=== PATIENT | female | born 1955 | race Caucasian/White ===

== ENCOUNTER → 2016-10-10 | Outpatient (CLI) | payer OTHER ==
[~2016-10-10] MED LIST: ALBU1AER9 INH; ALBU1NEB10 INH; ASTN; ATOR-22 PO; FLNIN/ INH; FLUO20CA36 PO; FLVHFA110 INH; LSN/10125 PO; MAGN1TAB19 PO; PRAM0.129 PO; SNG10 PO
--- NOTE | 2016-10-10 17:32 | DIAGNOSTIC IMAGING REPORT ---
LUMBAR SPINE 5 VIEWS HISTORY: SI JT SACROCOCCYGEAL PAIN COMPARISON: None. FINDINGS: There is no fracture. There is 4 mm of anterolisthesis of L4 and L5. Small endplate osteophytes within the lumbar spine. Mild disc space narrowing at L3-L4 and L4-L5. Presacral soft tissues are intact. There is mild levoscoliosis which could be positional. The sacrum and bilateral sacroiliac joints are intact. No fractures identified within the sacrum. Moderate facet degenerative changes within the mid to lower lumbar spine. IMPRESSION: 1. Mild levoscoliosis within the lumbar spine which may be positional. 2. Degenerative changes within the lumbar spine as described above. 3. The sacrum and bilateral sacroiliac joints are within normal limits. Electronically signed by: Larry Vergara M.D. 10/10/2016 5:31 PM Dictated Date/Time: 10/10/2016 5:28 PM
--- NOTE | 2016-10-10 20:41 | DIAGNOSTIC IMAGING REPORT ---
LEG LENGTH STUDY (WHOLE LEG) CLINICAL HISTORY: sacroiliac joint pain.Leg length discrepancy. COMPARISON STUDY: None. FINDINGS: The right left femur measure approximate 48.5 cm and the bilateral tibia measuring approximately 37.5 cm. However, there is a slight downward tilt to the left of the pelvis. There is associated slight medial angulation of the left leg comparison to the right which has a more vertical.. IMPRESSION: There is a slight downward tilt to the left of the pelvis. However, the bilateral lower extremities are symmetric in length. Electronically signed by: Larry Vergara M.D. 10/10/2016 8:40 PM Dictated Date/Time: 10/10/2016 8:35 PM
--- NOTE | 2016-10-11 08:19 | DIAGNOSTIC IMAGING REPORT ---
SACRUM COCCYX MIN 2 VIEWS CLINICAL HISTORY: Right sacroiliac joint/sacrococcygeal pain. COMPARISON STUDY: CT of the abdomen and pelvis December 17, 2014. FINDINGS: The sacroiliac joints are intact. There is no evidence for ankylosis. No fracture or suspicious lesion is present. 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 IMPRESSION: 1. No fracture within the sacrum or coccyx by radiography. 2. Minimal arthritis of the left sacroiliac joint. Electronically signed by: Jos Reyes M.D. 10/11/2016 8:17 AM Dictated Date/Time: 10/11/2016 8:08 AM
== END | disposition home or self-care (01) ==
LOC: C.RAD 16:44
PROVIDERS: ATTEND Chiropractor
DX: M53.3 Sacrococcygeal disorders, not elsewhere classified (principal); M47.898 Other spondylosis, sacral and sacrococcygeal region

== ENCOUNTER 2018-05-06 11:25 | Emergency (ER) | payer OTHER ==
[~2018-05-06] VITALS: Ht 160 cm; Wt 69.2 kg
[~2018-05-06 11:25] MED LIST changes: +PRAM0.1212 PO; -PRAM0.129 PO
[2018-05-06 11:29] VITALS: TEMP 36.5; Ht 160 cm; Wt 69.2 kg
[2018-05-06] MEDS ORDERED: MoRPHine SULFATE 2 MG/ML CARP IV STA (12:06)
[2018-05-06] MEDS ORDERED: SODIUM CHLORIDE 0.9% 1000ML 1,000 ML IV STA ×2 (12:06→14:47)
[2018-05-06] MEDS ORDERED: ONDANSETRON INJ 2 MG/ML 2 ML VIAL IV STA ×2 (12:06→13:20)
[2018-05-06 12:13] VITALS: O2SAT 98
[2018-05-06] MEDS ORDERED: OPTIRAY 320 IV PRN (12:15)
[2018-05-06 12:20] LABS: BASO % 0.1 %; BASO ABS # 0.01 K/uL (0-0.2); EOS % 0.6 %; EOS ABS # 0.07 K/uL (0-0.5); HEMATOCRIT 44.2 % (37-47); HEMOGLOBIN 15.8 g/dL (12.0-16.0); IG# 0.02 K/uL (0.00-0.02); LYMPH % 13.7 %; LYMPH ABS # 1.62 K/uL (1.2-3.4); MEAN CELL VOLUME 87.7 fL (80-100); MEAN CORPUSCULAR HEMOGLOBIN 31.3 pg (25-34); MEAN CORPUSCULAR HGB CONC 35.7 g/dl (32-36); MEAN PLATELET VOLUME 10.2 fL (7.4-10.4); MONO % 4.3 %; MONO ABS # 0.51 K/uL (0.11-0.59); NEUT % 81.1 %; NEUT ABS # 9.59 K/uL (1.4-6.5); PLATELET COUNT 256 K/uL (130-400); RED CELL DISTRIBUTION WIDTH CV 12.5 % (11.5-14.5); RED CELL DISTRIBUTION WIDTH SD 39.9 fL (36.4-46.3); WHITE BLOOD COUNT 11.82 K/uL (4.8-10.8)
[2018-05-06 12:36] LABS: ALBUMIN 4.4 gm/dl (3.4-5.0); CALCIUM 9.1 mg/dl (8.5-10.1); CREATININE 1.38 mg/dl (0.60-1.20); TOTAL PROTEIN 8.1 gm/dl (6.4-8.2)
[2018-05-06] MEDS ORDERED: MoRPHine SULFATE 4 MG/ML 1 ML CARP\\VIAL IV STA (12:51)
[2018-05-06] MEDS ORDERED: SULF800T23 PO (12:57)
[2018-05-06] MEDS ORDERED: ALBU18002 INH (12:57)
[2018-05-06] MEDS ORDERED: ALBINS/ INH (12:57)
[2018-05-06 13:17] LABS: POTASSIUM 3.6 mmol/L (3.5-5.1)
--- NOTE | 2018-05-06 13:20 | DIAGNOSTIC IMAGING REPORT ---
L HUMERUS MIN 2 VIEWS ROUTINE CLINICAL HISTORY: Fall. Left shoulder pain. COMPARISON: None FINDINGS: Note is made of an acute comminuted mildly displaced transverse fracture of the left humeral neck that extends into the humeral head and involves the inferior aspect of the greater tuberosity. Alignment of the left acromioclavicular and glenohumeral joints appears anatomic. Moderate AC joint arthrosis is noted. IMPRESSION: Acute comminuted mildly displaced left humeral neck fracture which extends into the humeral head and involves the greater tuberosity. Electronically signed by: Jos Reyes M.D. 05/06/2018 1:18 PM Dictated Date/Time: 05/06/2018 1:17 PM
--- NOTE | 2018-05-06 14:12 | DIAGNOSTIC IMAGING REPORT ---
CT OF THE CHEST WITH IV CONTRAST CLINICAL HISTORY: Fall, L shoulder pain, right flank pain. Hypotensive. COMPARISON STUDY: Chest CT May 03, 2009. TECHNIQUE: Following IV administration of 91 mL of Optiray-320, helical axial images of the chest were obtained. Sagittal and coronal reconstructions were viewed as well as maximal intensity projections on an independent 3-D workstation. A dose lowering technique was utilized adhering to the principles of ALARA. CT DOSE: 723.74 mGy.cm FINDINGS: There is no evidence for traumatic injury to the thoracic aorta. The size if the heart is at the upper limits of normal. There is no pericardial effusion. No thoracic lymphadenopathy is present. There is no pneumothorax or pulmonary contusion. No acute rib or thoracic spine fracture is noted. Note is made of an acute comminuted displaced left humeral neck fracture that extends into the humeral head and involves the greater tuberosity. IMPRESSION: 1. Acute comminuted mildly displaced left humeral neck fracture which extends into the humeral head and involves the greater tuberosity. 2. No additional acute traumatic findings on this exam. 3. Suspected small paraesophageal hernia. 4. Fatty liver. Electronically signed by: Jos Reyes M.D. 05/06/2018 2:11 PM Dictated Date/Time: 05/06/2018 2:03 PM
--- NOTE | 2018-05-06 14:18 | EMERGENCY ROOM VISIT NOTE ---
History First contact with patient: 11:52 Chief Complaint: FALL Stated Complaint: FALL,LT SHOULER AND ARM PAIN History of Present Illness The patient is a 63 year old female who presents to the Emergency Room via private vehicle accompanied by male with complaints of "fall, left shoulder and arm pain". The patient states that earlier today around 9 AM, she was at home ambulating while carrying a glass of milk in her right hand, when she excellently tripped over a box on the floor. She notes that she did not lose consciousness, have any chest pain or shortness of breath or other injury or illness which contributed to the fall. She notes that she simply fell over the box, landing on her left shoulder/side. She heard a crunch in her left arm. She denies striking her head or loss of consciousness. She noted difficulty getting off the floor because the pain in the left arm. Since then she has pain in the low back, and took 2 Advil around 10 AM. She denies any chest pain , shortness of breath, trouble breathing, abdominal pain, leg pain. She notes a history of hypertension of which she takes lisinopril/HCTZ. Review of Systems A complete 10-point Review of Systems was discussed with the patient, with pertinent positives and negatives listed in the History of Present Illness. All remaining Review of Systems questions can be considered negative unless otherwise specified. Past Medical/Surgical History Medical Problems: (1) Hypercholesteremia (2) Hypertension Surgical Problems: (1) H/O wisdom tooth extraction (2) S/P section (3) S/P tonsillectomy Family History Heart disease Social History Smoking Status: Never Smoker Alcohol Use: occasionally Drug Use: none Marital Status: Occupation Status: employed Current/Historical Medications Scheduled Atorvastatin (Lipitor), 20 MG PO DAILY Azelastine Hcl (Astelin Nasal Mylo), 1-2 SPRAYS NA BID Fluoxetine HCl (Fluoxetine HCl), 20 MG PO HS Sulfa/Trimethoprim (Bactrim Ds 800MG/160MG), Unknown Dose PO BID Scheduled PRN Albuterol Sulf (Proventil 0.083% 2.5MG/3ML), 2.5 MG INH QID PRN for Shortness of Breath Albuterol Sulfate (Proair Respiclick), INH UD PRN for SOB/Wheezing Oxycodone Ir (Roxicodone Ir), 1 TAB PO Q4H PRN for Pain Miscellaneous Medications Hctz/Lisinopril (Lisinopril/Hctz 10/12.5 Mg), 1 TAB PO Physical Exam Vital Signs Date Time Temp Pulse Resp B/P (MAP) Pulse Ox O2 Delivery O2 Flow Rate FiO2 05/06/18 19:04 66 109/56 93 05/06/18 18:31 111/50 05/06/18 18:01 91/47 05/06/18 17:52 96/47 05/06/18 17:01 92/52 05/06/18 16:57 76 16 97 05/06/18 16:55 69 14 112/55 98 71 108/66 77 109/50 05/06/18 16:55 80 90/51 95 Room Air 05/06/18 16:43 109/50 05/06/18 16:41 108/66 05/06/18 16:40 112/55 05/06/18 16:31 99/54 05/06/18 16:28 72 05/06/18 16:22 76 23 05/06/18 16:17 105/59 05/06/18 16:07 80 35 05/06/18 16:02 75 17 05/06/18 16:01 104/60 05/06/18 15:57 82 23 05/06/18 15:32 73 24 121/49 93 Room Air 05/06/18 15:01 108/57 05/06/18 14:55 61 16 05/06/18 14:31 92/47 05/06/18 14:25 67 20 97 05/06/18 13:59 97/39 05/06/18 13:57 109/44 05/06/18 13:56 79/35 05/06/18 13:55 75 16 109/44 95 Room Air 97/39 NIBP 05/06/18 13:01 90/44 05/06/18 12:57 60 13 05/06/18 12:30 60 14 98/47 97 Room Air 05/06/18 12:22 63 05/06/18 12:21 64 18 89/46 98 Room Air 05/06/18 12:13 98 Room Air 05/06/18 12:03 79 16 95/80 98 Room Air 05/06/18 11:39 56 95/41 98 Room Air 05/06/18 11:29 36.5 104 20 99 Room Air Physical Exam VITAL SIGNS - Vital signs and nursing notes were reviewed. Afebrile, slightly tachycardic at 104 bpm, and hypotensive. She is saturating well on room air. GENERAL -63-year-old female appearing her stated age. Communicates well with provider and answers questions appropriately. SKIN - Gross examination of the entire body surface demonstrates no lacerations to the body surface. There is an abrasion on the anterior knee that is very small in size. No bony tenderness. HEAD - Normocephalic, Atraumatic. No Lopez's Sign or Raccoon's Eyes. No depressed skull fractures palpable. EYES - PERRL with EOMI bilaterally. Without subconjunctival hemorrhage. EARS - No deformities of external structures noted on gross examination bilaterally. No hemotympanum present. No tympanic perforation noted. Handle of malleus, umbo, cone of light, pars tensa/flaccid all easily visualized. NOSE - Midline and without cyanosis. No epistaxis or clear watery discharge noted. Septum midline without deviation. No septal hematoma noted. No overlying ecchymosis noted. MOUTH/OROPHARYNX - Without perioral cyanosis. Tongue midline with equal elevation of palate bilaterally. No blood noted in the oropharynx. No tonsillar hypertrophy, erythema, or exudates noted. No dental fractures noted. NECK -no tenderness to palpation over the cervical spinous processes. No cervical paraspinal muscle tenderness noted. MUSCULOSKELETAL: There is no tenderness overlying the cervical, thoracic or lumbar paraspinous musculature or spinous processes. There is slight tenderness to palpation overlying the patient's lower flank on the right side. LUNGS - Chest wall symmetric without accessory muscle use, intercostals retractions, or central cyanosis. No flail chest or depressed fractures noted. No paradoxical chest wall movements noted. Normal vesicular breath sounds CTA B/ L. No wheezes, rales, or rhonchi appreciated. CARDIAC - RRR with S1/S2. No murmur, rubs, or gallops appreciated. ABDOMEN - Abdominal contour and without pulsations or visible masses. BS normoactive all four quadrants. No rebound tenderness or guarding noted. Negative Nicholas's or Wagoner Sánchez's Signs. No tenderness, palpable masses, hepatosplenomegaly, or ascites noted. EXTREMITIES - No gross deformities noted of the extremities. There is tenderness to palpation overlying the left proximal humerus region. Otherwise no tenderness of the extremities. +3/5 radial and dorsalis pedis pulses palpated throughout. +5/5 strength noted in UE/LE bilaterally. NEUROLOGIC - Cranial nerves II through XII grossly intact. Sensory intact to light touch throughout. PSYCH - A&Ox3 and cooperates fully with examiner. Pt is very pleasant and interacts well with examiner. Medical Decision & Procedures ER Provider Diagnostic Interpretation: CT OF THE CHEST WITH IV CONTRAST CLINICAL HISTORY: Fall, L shoulder pain, right flank pain. Hypotensive. COMPARISON STUDY: Chest CT May 03, 2009. TECHNIQUE: Following IV administration of 91 mL of Optiray-320, helical axial images of the chest were obtained. Sagittal and coronal reconstructions were viewed as well as maximal intensity projections on an independent 3-D workstation. A dose lowering technique was utilized adhering to the principles of ALARA. CT DOSE: 723.74 mGy.cm FINDINGS: There is no evidence for traumatic injury to the thoracic aorta. The size if the heart is at the upper limits of normal. There is no pericardial effusion. No thoracic lymphadenopathy is present. There is no pneumothorax or pulmonary contusion. No acute rib or thoracic spine fracture is noted. Note is made of an acute comminuted displaced left humeral neck fracture that extends into the humeral head and involves the greater tuberosity. IMPRESSION: 1. Acute comminuted mildly displaced left humeral neck fracture which extends into the humeral head and involves the greater tuberosity. 2. No additional acute traumatic findings on this exam. 3. Suspected small paraesophageal hernia. 4. Fatty liver. Electronically signed by: Jos Reyes M.D. 05/06/2018 2:11 PM Dictated Date/Time: 05/06/2018 2:[address] OF THE ABDOMEN AND PELVIS WITH CONTRAST CLINICAL HISTORY: Fall, L shoulder pain, right flank pain. Hypotensive. COMPARISON STUDY: CT of the abdomen and pelvis December 17, 2014. TECHNIQUE: Following IV administration of 91 mL of Optiray-320, axial images of the abdomen and pelvis were obtained from the lung bases to the proximal femurs. Images were reviewed in the axial, sagittal, and coronal planes. IV contrast was administered without complication. A dose lowering technique was utilized adhering to the principles of ALARA. FINDINGS: Please note that the chest CT will be reported separately. Fatty infiltration of the liver is noted. There is no evidence for traumatic injury to the liver, spleen, adrenal glands, kidneys or pancreas. There is no evidence for a bowel obstruction. Caliber and wall thickness of small and large bowel are normal. The appendix is normal. There is no lymphadenopathy. No hemoperitoneum or pneumoperitoneum is present. No acute pelvic or lumbar spine fracture is identified. IMPRESSION: No acute traumatic findings within the abdomen or pelvis. Electronically signed by: Jos Reyes M.D. 05/06/2018 2:14 PM Dictated Date/Time: 05/06/2018 2:11 PM [~ rep ct add3]] L HUMERUS MIN 2 VIEWS ROUTINE CLINICAL HISTORY: Fall. Left shoulder pain. COMPARISON: None FINDINGS: Note is made of an acute comminuted mildly displaced transverse fracture of the left humeral neck that extends into the humeral head and involves the inferior aspect of the greater tuberosity. Alignment of the left acromioclavicular and glenohumeral joints appears anatomic. Moderate AC joint arthrosis is noted. IMPRESSION: Acute comminuted mildly displaced left humeral neck fracture which extends into the humeral head and involves the greater tuberosity. Electronically signed by: Jos Reyes M.D. 05/06/2018 1:18 PM Dictated Date/Time: 05/06/2018 1:17 PM Laboratory Results 05/06/18 11:50 Red Blood Count 5.04, Mean Corpuscular Volume 87.7, Mean Corpuscular Hemoglobin 31.3, Mean Corpuscular Hemoglobin Concent 35.7, Mean Platelet Volume 10.2, Neutrophils (%) (Auto) 81.1, Lymphocytes (%) (Auto) 13.7, Monocytes (%) (Auto) 4.3, Eosinophils (%) (Auto) 0.6, Basophils (%) (Auto) 0.1, Neutrophils # (Auto) 9.59, Lymphocytes # (Auto) 1.62, Monocytes # (Auto) 0.51, Eosinophils # (Auto) 0.07, Basophils # (Auto) 0.01 05/06/18 11:50 05/06/18 12:50 Test 05/06/18 11:50 05/06/18 12:50 05/06/18 17:30 White Blood Count 11.82 K/uL (4.8-10.8) Red Blood Count 5.04 M/uL (4.2-5.4) Hemoglobin 15.8 g/dL (12.0-16.0) Hematocrit 44.2 % (37-47) Mean Corpuscular Volume 87.7 fL (80-100) Mean Corpuscular Hemoglobin 31.3 pg (25-34) Mean Corpuscular Hemoglobin Concent 35.7 g/dl (32-36) Platelet Count 256 K/uL (130-400) Mean Platelet Volume 10.2 fL (7.4-10.4) Neutrophils (%) (Auto) 81.1 % Lymphocytes (%) (Auto) 13.7 % Monocytes (%) (Auto) 4.3 % Eosinophils (%) (Auto) 0.6 % Basophils (%) (Auto) 0.1 % Neutrophils # (Auto) 9.59 K/uL (1.4-6.5) Lymphocytes # (Auto) 1.62 K/uL (1.2-3.4) Monocytes # (Auto) 0.51 K/uL (0.11-0.59) Eosinophils # (Auto) 0.07 K/uL (0-0.5) Basophils # (Auto) 0.01 K/uL (0-0.2) RDW Standard Deviation 39.9 fL (36.4-46.3) RDW Coefficient of Variation 12.5 % (11.5-14.5) Immature Granulocyte % (Auto) 0.2 % Immature Granulocyte # (Auto) 0.02 K/uL (0.00-0.02) Anion Gap 11.0 mmol/L (3-11) Est Creatinine Clear Calc Drug Dose 38.4 ml/min Estimated GFR () 46.7 Estimated GFR (Non- 40.3 BUN/Creatinine Ratio 12.1 (10-20) Calcium Level 9.1 mg/dl (8.5-10.1) Total Bilirubin 0.7 mg/dl (0.2-1) Alanine Aminotransferase (ALT/SGPT) 41 U/L (12-78) Alkaline Phosphatase 79 U/L (45-117) Total Protein 8.1 gm/dl (6.4-8.2) Albumin 4.4 gm/dl (3.4-5.0) Globulin 3.7 gm/dl (2.5-4.0) Albumin/Globulin Ratio 1.2 (0.9-2) Aspartate Amino Transf (AST/SGOT) 28 U/L (15-37) Urine Color YELLOW Urine Appearance CLEAR (CLEAR) Urine pH 5.0 (4.5-7.5) Urine Specific [place] > 1.045 (1.000-1.030) Urine Protein NEG (NEG) Urine Glucose (UA) NEG (NEG) Urine Ketones 2+ (NEG) Urine Occult Blood NEG (NEG) Urine Nitrite NEG (NEG) Urine Bilirubin NEG (NEG) Urine Urobilinogen NEG (NEG) Urine Leukocyte Esterase NEG (NEG) Medications Administered Medications (Trade) Dose Ordered Sig/Ronald Route Start Time Stop Time Status Last Admin Dose Admin Morphine Sulfate (MoRPHine SULFATE INJ) 2 mg NOW STAT IV 05/06/18 12:06 05/06/18 12:09 DC 05/06/18 12:17 2 MG Ondansetron HCl (Zofran Inj) 4 mg NOW STAT IV 05/06/18 12:06 05/06/18 12:09 DC 05/06/18 12:16 4 MG Sodium Chloride 1,000 ml @ 999 mls/hr Q1H1M STAT IV 05/06/18 12:06 05/06/18 13:06 DC 05/06/18 12:16 999 MLS/HR Morphine Sulfate (MoRPHine SULFATE INJ) 4 mg NOW STAT IV 05/06/18 12:51 05/06/18 12:52 DC 05/06/18 13:05 4 MG Ondansetron HCl (Zofran Inj) 4 mg NOW STAT IV 05/06/18 13:20 05/06/18 13:21 DC 05/06/18 13:20 4 MG Sodium Chloride 1,000 ml @ 999 mls/hr Q1H1M STAT IV 05/06/18 14:47 05/06/18 15:47 DC 05/06/18 15:28 999 MLS/HR Oxycodone HCl (Roxicodone Immediate Rel 5MG Home Pack) 1 homepack UD STAT PO 05/06/18 17:47 05/06/18 17:49 DC 05/06/18 18:51 1 HOMEPACK Medical Decision Patient was seen and evaluated as above in room C3. Review was performed of nursing notes and vital signs. After obtaining a thorough history and physical examination the above work up was performed. She presents to us today status post fall where she notes she heard a crunch/crack in her left proximal arm. She is holding it at her side in a comforting position. IV access was established, but upon review of her vital signs it is noted that she is hypotensive. There is concern that there could be intra-abdominal or thoracic injury causing her hypotension status post mechanical fall. She went down to CT scan with chest abdomen pelvis evaluated as well as x-ray for the left shoulder/humerus region. The CT does not reveal any acute intrathoracic or abdominal injury. Incidentals discussed with patient. There is a left proximal humeral neck extending into the head fracture. She is neurovascularly intact distally in this extremity. Arm sling was applied. She was given morphine here for pain. Care was taken so as to not provide too large of a dose given her hypotension. She was able to perfuse clinically well, as she was talking without difficulty and was not lightheaded or dizzy. To further evaluate, blood work was also obtained. CBC reveals slight leukocytosis of 11.82 which I believe to be secondary to reaction from the fracture. Metabolic panel does reveal elevation of creatinine at 1.38 which was extensively discussed with the patient. Urinalysis does not show evidence of UTI. The patient was observed/monitored here in the emergency department throughout her workup for nearly 6-1/2 hours. I did provide her 2 L of fluid in an attempt to raise her blood pressure which did slowly but steadily began to increase. Orthostatics were obtained in the ambulatory trial was also had. Patient was noting very slight/minimal dizziness at times but notes it was extremely small, and at time of discharge was feeling very well. She notes that she was not experiencing any dizziness or lightheadedness and was feeling fine. There was no chest pain or shortness of breath. I did offer her inpatient management given her hypotension, but she respectfully declined. I believe that she can be safely discharged as she clinically here is proven to not be symptomatic with the hypotension, and I question if this could be more of a chronic value secondary to her blood pressure medication. She is to discontinue the blood pressure medication until she follows up with the family doctor. Furthermore, she notes that she is also on Bactrim for a suspected UTI. She has no evidence of UTI here, had no symptoms. At this time I believe she can stop this as her creatinine has also become elevated and is unsure why but believe that this should be discontinued until further evaluation is had in the outpatient setting. This case was extensively discussed with the attending physician. The patient is to follow with orthopedics, and I did enlist the help of our case repairer to help establish a close follow-up with orthopedics. She is to also call the family doctor tomorrow to schedule follow-up regarding the other incidentals and findings here today to include but not limited to the hypotension. The patient was educated upon management, educated upon todays findings/results, educated upon symptoms in which to return, had questions answered prior to discharge, and was discharged home in good condition. I do not suspect the hypertension to be secondary to a traumatic finding or from her fall today. I also do not suspect this to be of any emergent process at this time secondary to the workup performed today and her clinical status at time of discharge. Case was discussed with the attending physician. In the evaluation and treatment of this patient, the following differential diagnoses were considered: Shoulder Contusion, Shoulder Fracture, Shoulder Dislocation, Thoracic Outlet Syndrome, Adhesive Capsulitis, Rotator Cuff Tear, Proximal Clavicle Head Fracture, Apical Pneumonia, Pneumothorax, Hemothorax,, internal bleeding, acute intrathoracic or abdominal injury, or TB among others. Impression Primary Impression: Fall Additional Impressions: Fracture of neck of left humerus Acute comminuted mildly displaced left humeral neck fracture Departure Information Dispostion Home / Self-Care Condition GOOD Prescriptions Oxycodone Ir (Roxicodone Ir) 5 Mg Tab 1 TAB PO Q4H Y for Pain, #18 TAB For Initial Treatment Prov: Yuri Garcia PA-C 05/06/18 Referrals Lambert Mendez MD (PCP) Sukhjinder Church, DO Patient Instructions [facility] Additional Instructions You have been treated in the Emergency Department for Shoulder Pain. You have a fracture of the left humeral neck/head. Please wear the arm sling you have received pain medicine in the emergency department which impairs your ability to operate a vehicle. It is illegal for you to drive after receiving these medicines. You have been prescribed oxycodone immediate release to be used for pain control. This is a narcotic medication. You cannot drive or consume alcohol while on this medicine. This medicine should only be used for pain that cannot be controlled with [id number] pain medicines. For pain control, you can use the following [id number] medicines (if >12 yo): - Regular strength (325mg/tab) Tylenol (acetaminophen) 2 tabs every 4-6 hours as needed. Do not exceed 12 tablets in a 24 hour period. Avoid taking more than 3 grams (3000 mg) of Tylenol per day. This includes any other sources of acetaminophen you may take on a regular basis. -At this point I would avoid ibuprofen as we discussed because of the kidney function. If this is a recent injury (<24 hrs), ice can be applied to the area of pain for the first 3 days to help decrease pain and inflammation. You have been provided the number for an Orthopaedic Surgeon. You should call this number as soon as possible to establish a follow-up visit from today's Emergency Department visit. Keep the shoulder brace/sling in place until evaluated by Orthopedics. Please also follow-up with the family doctor regarding the other CT findings as we discussed. Return to the Emergency Department if your current symptoms worsen despite treatment course outlined above, or if you develop any of the following symptoms : intractable pain despite aforementioned treatment course or new onset of numbness or tingling of the arm. Problem Qualifiers
[2018-05-06] MEDS ORDERED: OXYC-90 PO (17:44)
[2018-05-06] MEDS ORDERED: OXYCODONE IR HOME PACK PO STA (17:47)
[2018-05-06 19:04] VITALS: BP 109/56; PULSE 66; O2SAT 93
== END 2018-05-06 19:04 | disposition home or self-care (01) ==
LOC: C.EDB 11:26 → C.EDC 19:04
DX: S42.212A Unspecified displaced fracture of surgical neck of left humerus, initial encounter for closed fracture (principal); S80.219A Abrasion, unspecified knee, initial encounter; W01.198A Fall on same level from slipping, tripping and stumbling with subsequent striking against other object, initial encounter; R03.1 Nonspecific low blood-pressure reading; D72.829 Elevated white blood cell count, unspecified; R79.89 Other specified abnormal findings of blood chemistry; R00.0 Tachycardia, unspecified; R10.31 Right lower quadrant pain; I10 Essential (primary) hypertension; E78.5 Hyperlipidemia, unspecified; Z79.899 Other long term (current) drug therapy

== ENCOUNTER 2023-12-10 21:13 | Observation (INO) ==
--- NOTE | 2023-12-10 21:48 | Emergency Department Note ---
History of Present Illness General Chief complaint: TIA Symptoms Stated complaint: CONFUSION, HEADACHE, MEM LOSS Time Seen by Provider: 12/10/23 21:33 Source: patient, family ( who is at the bedside), RN notes reviewed and old records reviewed (12/09/22-H&P for a sleep study for obstructive sleep apnea) Mode of arrival: ambulatory Limitations: no limitations History of Present Illness This patient is 68-year-old previous healthy female who was watching TV about 40 minutes prior to arrival when she told her that she could not remember anything. She has a period of about 2 hours earlier in the day where she cannot member what they did she got very anxious and upset with this. She was feeling fine prior to this. She has had no focal neurologic deficits otherwise. No numbness or weakness or nausea or vomiting no difficulty speaking or swallowing no chest pain or shortness of breath no abdominal pain no trauma. No recent illness. No palpitations or dizziness or syncope Home Medications Medication Instructions Recorded Confirmed Type albuterol sulfate 90 mcg/actuation 1 inh inhalation DIRECTED PRN 12/10/23 12/10/23 History aerosol inhaler Shortness Of Breath Or Wheezing aspirin 81 mg tablet,delayed 81 mg PO HS 12/10/23 12/10/23 History release fluoxetine 20 mg capsule 20 mg PO HS 12/10/23 12/10/23 History fluticasone propionate 50 1 spray intranasal HS 12/10/23 12/10/23 History mcg/actuation nasal spray,suspension lisinopril 10 1 tab PO HS 12/10/23 12/10/23 History mg-hydrochlorothiazide 12.5 mg tablet metformin 500 mg tablet 500 mg PO BIDM 12/10/23 12/10/23 History rosuvastatin 5 mg tablet 5 mg PO HS 12/10/23 12/10/23 History Allergies Allergy/AdvReac Type Severity Reaction Status Date / Time oxytocin Allergy Mild ILLNESS Verified 12/10/23 23:53 Past Med/Surg History Social History Smoking Status: Never smoker Preferred Language: Cambodian Feels Safe at Home: Yes Immunizations: Past medical historyshe is prediabetic denies that she is on any blood thinners besides aspirin. Social history she lives locally with her Review of Systems A total of 10 systems reviewed and were otherwise negative Physical Exam Vital Signs Vital Signs - 24 hr 12/10/23 21:20 12/10/23 22:00 12/10/23 23:00 Temperature 36.4 C L Temperature Source Temporal Artery Scan Pulse Rate 94 H 90 Pulse Rate [Apical] 86 Respiratory Rate 20 20 Respiratory Effort / Characteristics Non-Labored Spontaneous Respiratory Depth Normal Respiratory Pattern Regular Blood Pressure 186/96 H Blood Pressure [Right Arm] 146/84 H Blood Pressure Mean 126 Blood Pressure Mean [Right Arm] 104 Blood Pressure Position [Right Arm] Semi-fowlers Pulse Oximetry 97 94 Oxygen Delivery Method Room Air Room Air Sepsis Recent Fever Within 48 Hours No Sepsis New/Unexplained Change in Mental Status No Sepsis Action Taken by Nursing No Action Required General: Well developed well nourished older female teary-eyed mildly anxious but otherwise who appears in no acute distress, breathing comfortably on room air. Normal speech HEENT: Normal cephalic atraumatic. Pupils are equal round and reactive to light. Extraocular movements are intact. Oropharynx is pink with moist mucous membranes. No swelling of the mouth lips or tongue. Neck: Supple with a midline trachea. No meningeal signs or stiffness, no JVD or bruits. No Stridor. Chest: Clear to auscultation bilaterally. No wheezes or rhonchi. No increased work of breathing. Heart: Regular rate and rhythm without murmurs or gallops. Abdomen: Soft nontender, nondistended without rebound guarding or rigidity. Extremities: No cyanosis clubbing or edema. No calf tenderness or assymetry Spine/Back. Non tender to palpation. No CVA tenderness Skin: Good turgor without rashes. Neurologic exam: Cranial nerves two through 12 are intact. Motor and sensation are intact and symmetrical throughout. No tremor Course Administered Medications Discontinued Medications Aspirin (Aspirin 81 Mg Chew) 324 mg PO NOW STA Stop: 12/10/23 23:25 Last Admin: 12/10/23 23:32 Dose: 324 mg Documented By: ESTELLA Ioversol (Optiray 320 125ml) 118 ml IV ONCE ONE Stop: 12/10/23 21:52 Last Admin: 12/10/23 21:51 Dose: 118 ml Documented By: EDK Potassium Chloride (Potassium Chloride 10 Meq Tabcr) 40 meq PO NOW STA Stop: 12/10/23 23:25 Last Admin: 12/10/23 23:31 Dose: 40 meq Documented By: ESTELLA Critical Care Time Critical Care Time: Yes Total Critical Care Time: 45 Due to the patient's acute presentation, need to call a stroke alert to expedite her care, discussion with stroke neurologist and hospitalist as well as the patient and her family, cardiac evaluation and reassessment and monitoring, I have personally spent greater than 45 minutes of critical care time in the direct management of this patient. This includes bedside care, interpretation of diagnostic studies, and testing, discussion with consultants, patient, and family members, and other required patient management activities. This 45 minutes is in excess of all separately billable procedures. Medical Decision Making Differential Diagnosis Transient global amnesia, stroke, TIA, intracranial process, electrolyte or metabolic abnormality, anemia, infection Medical Records Attestation: I reviewed the patient's medical records. Home Medications Current Medication List: was personally reviewed by me Laboratory Data Attestation: I reviewed the patient's lab results. 12/10/23 21:40 12/10/23 21:40 Lab Results 12/10/23 12/10/23 12/10/23 Range/Units 21:38 21:40 21:50 WBC 6.25 (4.8-10.8) K/ul RBC 4.90 (4.20-5.40) M/uL Hgb 15.1 (12.0-16.0) g/dl POC Hgb 15.0 (12.0-16.0) g/dl Hct 42.3 (37.0-47.0) % POC Hct 44 (37-47) % MCV 86.3 (80.0-100.0) fL MCH 30.8 (25.0-34.0) pg MCHC 35.7 (32.0-36.0) g/dL RDW Std Deviation 38.0 (36.4-46.3) fL RDW Coeff of Sridhar 12.0 (11.5-14.5) % Plt Count 337 (130-400) K/uL MPV 9.4 (9.4-12.4) fL Immature Gran % (Auto) 0.2 % Neut % (Auto) 52.2 % Lymph % (Auto) 36.2 % [place] % (Auto) 7.8 % Eos % (Auto) 3.4 % Baso % (Auto) 0.2 % Neut # (Auto) 3.27 (1.40-6.50) K/uL Lymph # (Auto) 2.26 (1.20-3.40) K/uL [place] # (Auto) 0.49 (0.11-0.59) K/uL Eos # (Auto) 0.21 (0.00-0.50) K/uL Baso # (Auto) 0.01 (0.00-0.20) K/uL Immature Gran # (Auto) 0.01 (0.01-0.20) K/uL PT 10.3 (9.0-12.0) Seconds INR 0.9 (0.9-1.1) APTT 30 (21-31) Seconds PTT Ratio 1.1 POC Sodium 140 (135-144) mmol/L Sodium 138 (136-145) mmol/L POC Potassium 3.2 L (3.3-5.0) mmol/L Potassium 3.2 L (3.5-5.1) mmol/L POC Chloride 99 L (101-112) mmol/L Chloride 99 (98-107) mmol/L Carbon Dioxide 29 (21-32) mmol/L POC Total CO2 32 H (24-31) mmol/L Anion Gap 10 (3-11) POC Anion Gap 13.0 L (16-25) mmol/L POC BUN 13 (7-18) mg/dl BUN 14 (6-23) mg/dl Creatinine 0.77 (0.6-1.2) mg/dl POC Creatinine 0.8 (0.6-1.3) mg/dl Est Cr Clr Drug Dosing 67.0 ml/min Est GFR ( Amer) 91.3 ml/min Est GFR (Non-Af Amer) 78.8 ml/min BUN/Creatinine Ratio 18.2 (10-20) Glucose 127 H (70-99(Fasting)) mg/dl POC Glucose 130 H (70-99) mg/dl POC Glucose (other) 132 H (70-99) mg/dl Calcium 9.0 (8.6-10.3) mg/dl POC Ioniz Calcium Pratik 1.08 L (1.12-1.32) mmol/l Magnesium 2.0 (1.7-2.4) mg/dl Total Bilirubin 0.2 (0.2-1.0) mg/dl AST 31 (13-39) U/L ALT 29 (7-52) U/L Alkaline Phosphatase 72 (34-104) U/L Troponin I High Sens 24.2 H (0-14) pg/ml Total Protein 7.7 (6.0-8.3) gm/dl Albumin 4.8 (3.4-5.0) gm/dl Globulin 2.9 (2.5-4.0) gm/dl Albumin/Globulin Ratio 1.7 (0.9-2) // Range/Units 23:51 WBC (4.8-10.8) K/ul RBC (4.20-5.40) M/uL Hgb (12.0-16.0) g/dl POC Hgb (12.0-16.0) g/dl Hct (37.0-47.0) % POC Hct (37-47) % MCV (80.0-100.0) fL MCH (25.0-34.0) pg MCHC (32.0-36.0) g/dL RDW Std Deviation (36.4-46.3) fL RDW Coeff of Sridhar (11.5-14.5) % Plt Count (130-400) K/uL MPV (9.4-12.4) fL Immature Gran % (Auto) % Neut % (Auto) % Lymph % (Auto) % [place] % (Auto) % Eos % (Auto) % Baso % (Auto) % Neut # (Auto) (1.40-6.50) K/uL Lymph # (Auto) (1.20-3.40) K/uL [place] # (Auto) (0.11-0.59) K/uL Eos # (Auto) (0.00-0.50) K/uL Baso # (Auto) (0.00-0.20) K/uL Immature Gran # (Auto) (0.01-0.20) K/uL PT (9.0-12.0) Seconds INR (0.9-1.1) APTT (21-31) Seconds PTT Ratio POC Sodium (135-144) mmol/L Sodium (136-145) mmol/L POC Potassium (3.3-5.0) mmol/L Potassium (3.5-5.1) mmol/L POC Chloride (101-112) mmol/L Chloride (98-107) mmol/L Carbon Dioxide (21-32) mmol/L POC Total CO2 (24-31) mmol/L Anion Gap (3-11) POC Anion Gap (16-25) mmol/L POC BUN (7-18) mg/dl BUN (6-23) mg/dl Creatinine (0.6-1.2) mg/dl POC Creatinine (0.6-1.3) mg/dl Est Cr Clr Drug Dosing ml/min Est GFR ( Amer) ml/min Est GFR (Non-Af Amer) ml/min BUN/Creatinine Ratio (10-20) Glucose (70-99(Fasting)) mg/dl POC Glucose (70-99) mg/dl POC Glucose (other) (70-99) mg/dl Calcium (8.6-10.3) mg/dl POC Ioniz Calcium Pratik (1.12-1.32) mmol/l Magnesium (1.7-2.4) mg/dl Total Bilirubin (0.2-1.0) mg/dl AST (13-39) U/L ALT (7-52) U/L Alkaline Phosphatase (34-104) U/L Troponin I High Sens 78.5 H* D (0-14) pg/ml Total Protein (6.0-8.3) gm/dl Albumin (3.4-5.0) gm/dl Globulin (2.5-4.0) gm/dl Albumin/Globulin Ratio (0.9-2) Imaging Data Attestation: I personally reviewed and interpreted this imaging study as follows: My Impression: CAT scan of her headno hemorrhage or mass effect seen as per my independent interpretation Radiologist's Impression: Head CT 12/10/23 21:44 CR Exam(s): CT HEAD Without Contrast EXAM: CT Head Without Intravenous Contrast CLINICAL HISTORY: Reason for exam: neuro deficit, acute stroke suspected. TECHNIQUE: Axial computed tomography images of the head/brain without intravenous contrast. CTDI is 46.85 mGy and DLP is 677.48 mGy-cm. Automated exposure control was utilized for the study. A dose lowering technique was utilized adhering to the principles of ALARA. COMPARISON: No relevant prior studies available. FINDINGS: Brain: No hemorrhage, extra-axial fluid collection, mass effect, or edema. Ventricles: Unremarkable. Bones/joints: Unremarkable. No fracture. Soft tissues: Unremarkable. Sinuses: No acute sinusitis. Mastoid air cells: Unremarkable as visualized. IMPRESSION: 1. No acute intracranial abnormality. Communications: Call Doctor Stroke Electronically signed by: Richar Chopra MD 12/10/23 22:18 PM Head CTA 12/10/23 21:44 CR Exam(s): CTA HEAD With Contrast IV Amt: OPTIRAY 320 118ML EXAM: CT Angiography Head With Intravenous Contrast CLINICAL HISTORY: Reason for exam: neuro deficit, acute stroke suspected. TECHNIQUE: Axial computed tomographic angiography images of the head with intravenous contrast. CTDI is 57.23 mGy and DLP is 682.67 mGy-cm. Automated exposure control was utilized for the study. A dose lowering technique was utilized adhering to the principles of ALARA. MIP reconstructed images were created and reviewed. CONTRAST: Patient received OPTIRAY 320 118ML of IV contrast COMPARISON: No relevant prior studies available. FINDINGS: Right internal carotid artery: No acute findings. Intracranial segment is patent with no significant stenosis. No aneurysm. Right anterior cerebral artery: Unremarkable. No occlusion or significant stenosis. No aneurysm. Right middle cerebral artery: Unremarkable. No occlusion or significant stenosis. No aneurysm. Right posterior cerebral artery: Unremarkable. No occlusion or significant stenosis. No aneurysm. Right vertebral artery: Unremarkable as visualized. Left internal carotid artery: No acute findings. Intracranial segment is patent with no significant stenosis. No aneurysm. Left anterior cerebral artery: Unremarkable. No occlusion or significant stenosis. No aneurysm. Left middle cerebral artery: Unremarkable. No occlusion or significant stenosis. No aneurysm. Left posterior cerebral artery: Unremarkable. No occlusion or significant stenosis. No aneurysm. Left vertebral artery: Unremarkable as visualized. Basilar artery: Unremarkable. No occlusion or significant stenosis. No aneurysm. IMPRESSION: No acute abnormality. Communications: Call Doctor Stroke Electronically signed by: Richar Chopra MD 12/10/23 22:19 PM Neck CTA 12/10/23 21:44 CR Exam(s): CTA NECK With Contrast IV Amt: OPTIRAY 320 118ML EXAM: CT Angiography Neck With Intravenous Contrast CLINICAL HISTORY: Reason for exam: neuro deficit, acute stroke suspected. TECHNIQUE: Routine carotid CT angiography protocol was performed with intravenous contrast. NASCET criteria using the distal ICAs for comparison were used for evaluation of stenoses. CTDI is 12.75 mGy and DLP is 424.41 mGy-cm. Automated exposure control was utilized for the study. A dose lowering technique was utilized adhering to the principles of ALARA. MIP reconstructed images were created and reviewed. CONTRAST: Patient received OPTIRAY 320 118ML of IV contrast COMPARISON: None. FINDINGS: VASCULATURE: Right common carotid artery: Unremarkable. No occlusion or significant stenosis. No dissection. Right internal carotid artery: Unremarkable. Extracranial segment is patent with no occlusion or significant stenosis. No dissection. Right vertebral artery: Unremarkable. No occlusion or significant stenosis. No dissection. Left common carotid artery: Unremarkable. No occlusion or significant stenosis. No dissection. Left internal carotid artery: Unremarkable. Extracranial segment is patent with no occlusion or significant stenosis. No dissection. Left vertebral artery: Unremarkable. No occlusion or significant stenosis. No dissection. NECK: Bones/joints: Advanced degenerative changes within the cervical spine. No acute fracture. Soft tissues: Unremarkable. Lung apices: Clear. CAROTID STENOSIS REFERENCE USING NASCET CRITERIA: % ICA stenosis = (1 - narrowest ICA diameter/diameter of distal cervical ICA) x 100. Mild - <50% stenosis. Moderate - 50-69% stenosis. Severe - 70-94% stenosis. Near occlusion - 95-99% stenosis. Occluded - 100% stenosis. IMPRESSION: No acute abnormality. Communications: Call Doctor Stroke Electronically signed by: Richar Chopra MD 12/10/23 22:20 PM ECG Data Attestation: I personally reviewed and interpreted this ECG as follows: Indication: + weakness Rate (beats per minute): 93 Rhythm: + normal sinus ECG Intervals/blocks: + Normal QRS, + Normal QT and + Normal CA ECG Naylor: + Normal ECG ST segments: + Normal ST segments ECG Findings: no PACs or no PVCs Comparison ECG Date: from (05/03/2009) Additional Comments: EKG #2: Normal sinus rhythm rate of 70 no acute ischemic changes or ectopy. No significant change compared to EKG #1. MDM Narrative This patient comes in described above I saw her in room B2. she had an episode where she cannot remember starting about 40 minutes prior to arrival. She got very anxious with this besides that she has no focal neurologic deficits I do suspect is most likely transient global amnesia. Given her acute neurologic symptoms , I did call a stroke alert to help expedite her care and a full stroke evaluation was obtained her blood sugar was normal at 130. The patient was taken emergently to CAT scan to have CT of her head as well as a CTA angiography of the head and neck. She was also evaluated by the telestroke neurologist, Dr. Bentley. Dr. Bentley did feel this was most likely transient global amnesia and recommended admission for telemetry, MRI, EEG as well as further testing including fasting lipid profile. Continue home aspirin. I did give the patient a chewable 324 mg aspirin here she does take a baby aspirin but had yet to take it today. She has no significant electrolyte or metabolic abnormalities with exception of potassium being mildly low at 3.2 I did give her 40 mill equivalents p.o. to replete this. Her initial troponin was mildly elevated 24 although EKG shows no ischemic changes and she has been on a hogshead liner without any arrhythmia or problems. Given that was mildly elevated we trended it and the second 1 was in the 70 range. In light of this I did repeat a second EKG is no change compared to first she is asymptomatic has no chest pain shortness of breath or palpitations shortness of breath or dizziness. I did discuss this with Dr. Ohara who is going to admit her for her neurologic workup that they may also want to do a cardiac workup and trend her troponins. She will be admitted/observed on a hogshead liner and has been on a hogshead liner in the ED. I talked to both the patient and her at length multiple times and she intermittently seems very anxious. [facility]: Orders placed in EMR for continuous hogshead liner: Upon my evaluation patient was noted to be in normal sinus rhythm rate of 80 Impression & Plan Transient global amnesia, Elevated troponin, Hypokalemia, Anxiety Discharge Plan Visit Data Chief Complaint: TIA Symptoms Stated Complaint: CONFUSION, HEADACHE, MEM LOSS ED Provider: Edmond Figueroa Discharge Problem: Transient global amnesia, Elevated troponin, Hypokalemia, Anxiety Forms Stand Alone Forms: My [facility] Prescriptions Prescriptions: No Action metformin 500 mg tablet 500 mg PO BIDM aspirin 81 mg tablet,delayed release (DR/EC) 81 mg PO HS lisinopril-hydrochlorothiazide 10-12.5 mg tablet 1 tab PO HS albuterol sulfate 90 mcg/actuation Hfa Aerosol Inhaler 1 inh INHALATION DIRECTED PRN (Reason: Shortness Of Breath Or Wheezing) fluoxetine 20 mg capsule 20 mg PO HS fluticasone propionate 50 mcg/actuation spray,suspension 1 spray INTRANASAL HS rosuvastatin 5 mg tablet 5 mg PO HS Referrals Referrals: Lambert Mendez MD [Primary Care Provider] -
[2023-12-10] MEDS: OPTIRAY 320 125ml IV ONE (21:51)
[2023-12-10 22:02] LABS: iSTAT Creatinine 0.8 mg/dl (0.6-1.3); iSTAT Ionized Calcium 1.08 mmol/l (1.12-1.32); iSTAT Potassium 3.2 mmol/L (3.3-5.0)
--- NOTE | 2023-12-10 22:19 | CT Scan Report ---
Exam(s): CT HEAD Without Contrast EXAM: CT Head Without Intravenous Contrast CLINICAL HISTORY: Reason for exam: neuro deficit, acute stroke suspected. TECHNIQUE: Axial computed tomography images of the head/brain without intravenous contrast. CTDI is 46.85 mGy and DLP is 677.48 mGy-cm. Automated exposure control was utilized for the study. A dose lowering technique was utilized adhering to the principles of ALARA. COMPARISON: No relevant prior studies available. FINDINGS: Brain: No hemorrhage, extra-axial fluid collection, mass effect, or edema. Ventricles: Unremarkable. Bones/joints: Unremarkable. No fracture. Soft tissues: Unremarkable. Sinuses: No acute sinusitis. Mastoid air cells: Unremarkable as visualized. IMPRESSION: 1. No acute intracranial abnormality. Communications: Call Doctor Stroke Electronically signed by: Richar Chopra MD 12/10/23 22:18 PM
--- NOTE | 2023-12-10 22:20 | CT Scan Report ---
Exam(s): CTA HEAD With Contrast IV Amt: OPTIRAY 320 118ML EXAM: CT Angiography Head With Intravenous Contrast CLINICAL HISTORY: Reason for exam: neuro deficit, acute stroke suspected. TECHNIQUE: Axial computed tomographic angiography images of the head with intravenous contrast. CTDI is 57.23 mGy and DLP is 682.67 mGy-cm. Automated exposure control was utilized for the study. A dose lowering technique was utilized adhering to the principles of ALARA. MIP reconstructed images were created and reviewed. CONTRAST: Patient received OPTIRAY 320 118ML of IV contrast COMPARISON: No relevant prior studies available. FINDINGS: Right internal carotid artery: No acute findings. Intracranial segment is patent with no significant stenosis. No aneurysm. Right anterior cerebral artery: Unremarkable. No occlusion or significant stenosis. No aneurysm. Right middle cerebral artery: Unremarkable. No occlusion or significant stenosis. No aneurysm. Right posterior cerebral artery: Unremarkable. No occlusion or significant stenosis. No aneurysm. Right vertebral artery: Unremarkable as visualized. Left internal carotid artery: No acute findings. Intracranial segment is patent with no significant stenosis. No aneurysm. Left anterior cerebral artery: Unremarkable. No occlusion or significant stenosis. No aneurysm. Left middle cerebral artery: Unremarkable. No occlusion or significant stenosis. No aneurysm. Left posterior cerebral artery: Unremarkable. No occlusion or significant stenosis. No aneurysm. Left vertebral artery: Unremarkable as visualized. Basilar artery: Unremarkable. No occlusion or significant stenosis. No aneurysm. IMPRESSION: No acute abnormality. Communications: Call Doctor Stroke Electronically signed by: Richar Chopra MD 12/10/23 22:19 PM
--- NOTE | 2023-12-10 22:21 | CT Scan Report ---
Exam(s): CTA NECK With Contrast IV Amt: OPTIRAY 320 118ML EXAM: CT Angiography Neck With Intravenous Contrast CLINICAL HISTORY: Reason for exam: neuro deficit, acute stroke suspected. TECHNIQUE: Routine carotid CT angiography protocol was performed with intravenous contrast. NASCET criteria using the distal ICAs for comparison were used for evaluation of stenoses. CTDI is 12.75 mGy and DLP is 424.41 mGy-cm. Automated exposure control was utilized for the study. A dose lowering technique was utilized adhering to the principles of ALARA. MIP reconstructed images were created and reviewed. CONTRAST: Patient received OPTIRAY 320 118ML of IV contrast COMPARISON: None. FINDINGS: VASCULATURE: Right common carotid artery: Unremarkable. No occlusion or significant stenosis. No dissection. Right internal carotid artery: Unremarkable. Extracranial segment is patent with no occlusion or significant stenosis. No dissection. Right vertebral artery: Unremarkable. No occlusion or significant stenosis. No dissection. Left common carotid artery: Unremarkable. No occlusion or significant stenosis. No dissection. Left internal carotid artery: Unremarkable. Extracranial segment is patent with no occlusion or significant stenosis. No dissection. Left vertebral artery: Unremarkable. No occlusion or significant stenosis. No dissection. NECK: Bones/joints: Advanced degenerative changes within the cervical spine. No acute fracture. Soft tissues: Unremarkable. Lung apices: Clear. CAROTID STENOSIS REFERENCE USING NASCET CRITERIA: % ICA stenosis = (1 - narrowest ICA diameter/diameter of distal cervical ICA) x 100. Mild - <50% stenosis. Moderate - 50-69% stenosis. Severe - 70-94% stenosis. Near occlusion - 95-99% stenosis. Occluded - 100% stenosis. IMPRESSION: No acute abnormality. Communications: Call Doctor Stroke Electronically signed by: Richar Chopra MD 12/10/23 22:20 PM
[2023-12-10 22:25] LABS: Basophils # (auto) 0.01 K/uL (0.00-0.20); Basophils % (auto) 0.2 %; Eosinophils # (auto) 0.21 K/uL (0.00-0.50); Eosinophils % (auto) 3.4 %; Hematocrit (blood only) 42.3 % (37.0-47.0); Hemoglobin 15.1 g/dl (12.0-16.0); Immature Granulocytes # (auto) 0.01 K/uL (0.01-0.20); Immature Granulocytes % (auto) 0.2 %; Lymphocytes # (auto) 2.26 K/uL (1.20-3.40); Lymphocytes % (auto) 36.2 %; Mean Corpuscular Hemoglobin 30.8 pg (25.0-34.0); Mean Corpuscular Hgb Conc 35.7 g/dL (32.0-36.0); Mean Corpuscular Volume 86.3 fL (80.0-100.0); Mean Platelet Volume 9.4 fL (9.4-12.4); Monocytes # (auto) 0.49 K/uL (0.11-0.59); Monocytes % (auto) 7.8 %; Neutrophils # (auto) 3.27 K/uL (1.40-6.50); Neutrophils % (auto) 52.2 %; Platelet Count 337 K/uL (130-400); White Blood Count 6.25 K/ul (4.8-10.8)
[2023-12-10 22:44] LABS: Albumin Globulin Ratio 1.7 (0.9-2); Albumin Level 4.8 gm/dl (3.4-5.0); BUN Creatinine Ratio 18.2 (10-20); Bilirubin,Total 0.2 mg/dl (0.2-1.0); Est GFR (African American) 91.3 ml/min; Est GFR (Non-African American) 78.8 ml/min; Globulin 2.9 gm/dl (2.5-4.0); Potassium 3.2 mmol/L (3.5-5.1); Total Protein 7.7 gm/dl (6.0-8.3)
[2023-12-10 22:50] LABS: Troponin I High Sensitivity 24.2 pg/ml (0-14)
[2023-12-10 23:12] LABS: INR 0.9 (0.9-1.1); Partial Thromboplastin Ratio 1.1; Partial Thromboplastin Time 30 Seconds (21-31); Prothrombin Time 10.3 Seconds (9.0-12.0)
[2023-12-10] MEDS: POTASSIUM CHLORIDE 10 MEQ TABCR PO STA (23:31)
[2023-12-10] MEDS: ASPIRIN 81 MG CHEW PO STA (23:32)
[2023-12-11] MEDS ORDERED: PHARMACIST DISCHARGE MED REC CONSULT PRN (03:05)
[2023-12-11] MEDS ORDERED: NITROGLYCERIN SL 0.4 MG/TAB TAB SL PRN (03:05)
[2023-12-11] MEDS ORDERED: ALBUTEROL HFA 8 GM INHALER INH PRN (03:05)
[2023-12-11] MEDS ORDERED: POLYETHYLENE (MIRALAX) 17 GM PACK PO PRN (03:05)
--- NOTE | 2023-12-11 03:41 | History & Physical Report ---
Date of Service December 11, 2023 Assessment & Plan (1) Transient global amnesia: Plan: 68-year-old female with past medical history significant for dyslipidemia, prediabetes, mild intermittent asthma, obstructive sleep apnea, mixed rhinitis, hypertension, sialadenitis, urge incontinence of urine, degenerative's disease, history of jaw pain, general anxiety disorder, primary insomnia, presents with transient global amnesia. Around 9 PM tonight patient was watching TV and for about 40 minutes she could not remember anything. Currently her memory is back. Resting comfortably. Last couple of days she has sharp pain on and off in the left temporal region of the head but that got resolved now. No dizziness. No blurred visions or double visions.. No runny nose. No sore throat. No cough. No nausea. No difficulty swallowing. No chest pain. No shortness of breath. No abdominal pain. Normal bowel and bladder movements. Ambulating okay. Hemodynamics are okay. Transient global amnesia CT head, CTA head and neck unremarkable Currently doing okay Carissa neurology recommended MRI scan and EEG, lipid profile and continue home aspirin and telemetry monitoring. Will do a dose of IV thiamine Neurochecks as per protocol Speech evaluation PT OT evaluation Neuroconsult in a.m. for further recommendations Prediabetes On metformin which will be held Sliding scale Follow HbA1c levels Hyperlipidemia Crestor Will follow lipid profile Mild intermittent asthma Currently stable Continue home inhalers Obstructive sleep apnea CPAP nightly Hypertension On lisinopril hydrochlorothiazide We will monitor General anxiety disorder On fluoxetine DVT prophylaxis SCDs for now Disposition Telemetry Full code Admission and Anticipated Discharge Date Admission Date: December 11, 2023 History of Present Illness Chief Complaint: Transient global amnesia Primary Care Provider: Lambert Mendez MD 68-year-old female with past medical history significant for dyslipidemia, prediabetes, mild intermittent asthma, obstructive sleep apnea, mixed rhinitis, hypertension, sialadenitis, urge incontinence of urine, degenerative's disease, history of jaw pain, general anxiety disorder, primary insomnia, presents with transient global amnesia. Around 9 PM tonight patient was watching TV and for about 40 minutes she could not remember anything. Currently her memory is back. Resting comfortably. Last couple of days she has sharp pain on and off in the left temporal region of the head but that got resolved now. No dizziness. No blurred visions or double visions.. No runny nose. No sore throat. No cough. No nausea. No difficulty swallowing. No chest pain. No shortness of breath. No abdominal pain. Normal bowel and bladder movements. Ambulating okay. Hemodynamics are okay. Past medical history. As mentioned above Past surgical history. Arthrocentesis intermitted bursa . . Colonoscopy. Cystoscopy. Dental surgery. Hysteroscopy with biopsy and polypectomy. Excision of inclusion cyst both upper eyelids. Tonsillectomy and adenoidectomy. Repair of bladder defect. Social history. . No smoking. Alcohol rarely. No drug use. Family history. Father had allergies. Mother had diabetes. Son has asthma. Allergies. Brother has asthma. Allergies Allergy/AdvReac Type Severity Reaction Status Date / Time oxytocin Allergy Mild ILLNESS Verified 12/10/23 23:53 Home Medications Medication Instructions Recorded Confirmed Type albuterol sulfate 90 mcg/actuation 1 inh inhalation DIRECTED PRN 12/10/23 12/10/23 History aerosol inhaler Shortness Of Breath Or Wheezing aspirin 81 mg tablet,delayed 81 mg PO HS 12/10/23 12/10/23 History release fluoxetine 20 mg capsule 20 mg PO HS 12/10/23 12/10/23 History fluticasone propionate 50 1 spray intranasal HS 12/10/23 12/10/23 History mcg/actuation nasal spray,suspension lisinopril 10 1 tab PO HS 12/10/23 12/10/23 History mg-hydrochlorothiazide 12.5 mg tablet metformin 500 mg tablet 500 mg PO BIDM 12/10/23 12/10/23 History rosuvastatin 5 mg tablet 5 mg PO HS 12/10/23 12/10/23 History Past Med/Surg History Social History Smoking Status: Never smoker Hx Alcohol Use: No Preferred Language: Ghanaian Communication Ability: Effective Information Assistant Required: No Beliefs That Will Affect Care: None Current Living Situation: Spouse Current Living Situation Comment: Larry- Feels Safe at Home: Yes Safety Concerns: Feels Safe At This Time Assistive Devices: Glasses Review of Systems Review of Systems: All systems reviewed & are unremarkable except as noted in HPI & below Physical Exam Physical Exam: General- Not in distress Head- atraumatic Eyes- PERRL, EOMI ENT- oropharynx clear Neck- supple, no JVD, no adenopathy. Lungs- clear to auscultation no wheezing or crackles. Heart- regular rate and rhythm; no murmur, no gallop. Abdomen- normal bowel sounds, soft, nontender, no distension. Extremities- no pretibial edema, no erythema seen Neuro- alert, oriented x 3; PERRL, EOMI; no facial palsy; no dysarthria; motor 5/5 bilaterally; co ordination of movements normal. No pronator drift, sensations intact. position sense intact. Results & Data Results & Data Vital Signs (Past 12 Hours) Vital Signs Temp Pulse Pulse Resp BP BP Pulse Ox 12/11/23 02:00 67 12/11/23 01:00 69 20 146/78 H 95 12/10/23 23:00 86 20 146/84 H 94 12/10/23 22:00 90 12/10/23 21:20 36.4 C L 94 H 20 186/96 H 97 O2 Del Method 12/11/23 02:00 12/11/23 01:00 Room Air 12/10/23 23:00 Room Air 12/10/23 22:00 12/10/23 21:20 Room Air Diagnostic Findings Laboratory Results WBC 6.25 K/ul (4.8-10.8) 12/10/23 21:40 RBC 4.90 M/uL (4.20-5.40) 12/10/23 21:40 Hgb 15.1 g/dl (12.0-16.0) 12/10/23 21:40 POC Hgb 15.0 g/dl (12.0-16.0) 12/10/23 21:50 Hct 42.3 % (37.0-47.0) 12/10/23 21:40 POC Hct 44 % (37-47) 12/10/23 21:50 MCV 86.3 fL (80.0-100.0) 12/10/23 21:40 MCH 30.8 pg (25.0-34.0) 12/10/23 21:40 MCHC 35.7 g/dL (32.0-36.0) 12/10/23 21:40 RDW Std Deviation 38.0 fL (36.4-46.3) 12/10/23 21:40 RDW Coeff of Sridhar 12.0 % (11.5-14.5) 12/10/23 21:40 Plt Count 337 K/uL (130-400) 12/10/23 21:40 MPV 9.4 fL (9.4-12.4) 12/10/23 21:40 Immature Gran % (Auto) 0.2 % 12/10/23 21:40 Neut % (Auto) 52.2 % 12/10/23 21:40 Lymph % (Auto) 36.2 % 12/10/23 21:40 [place] % (Auto) 7.8 % 12/10/23 21:40 Eos % (Auto) 3.4 % 12/10/23 21:40 Baso % (Auto) 0.2 % 12/10/23 21:40 Neut # (Auto) 3.27 K/uL (1.40-6.50) 12/10/23 21:40 Lymph # (Auto) 2.26 K/uL (1.20-3.40) 12/10/23 21:40 [place] # (Auto) 0.49 K/uL (0.11-0.59) 12/10/23 21:40 Eos # (Auto) 0.21 K/uL (0.00-0.50) 12/10/23 21:40 Baso # (Auto) 0.01 K/uL (0.00-0.20) 12/10/23 21:40 Immature Gran # (Auto) 0.01 K/uL (0.01-0.20) 12/10/23 21:40 PT 10.3 Seconds (9.0-12.0) 12/10/23 21:40 INR 0.9 (0.9-1.1) 12/10/23 21:40 APTT 30 Seconds (21-31) 12/10/23 21:40 PTT Ratio 1.1 12/10/23 21:40 POC Sodium 140 mmol/L (135-144) 12/10/23 21:50 Sodium 138 mmol/L (136-145) 12/10/23 21:40 POC Potassium 3.2 mmol/L (3.3-5.0) L 12/10/23 21:50 Potassium 3.2 mmol/L (3.5-5.1) L 12/10/23 21:40 POC Chloride 99 mmol/L (101-112) L 12/10/23 21:50 Chloride 99 mmol/L (98-107) 12/10/23 21:40 Carbon Dioxide 29 mmol/L (21-32) 12/10/23 21:40 POC Total CO2 32 mmol/L (24-31) H 12/10/23 21:50 Anion Gap 10 (3-11) 12/10/23 21:40 POC Anion Gap 13.0 mmol/L (16-25) L 12/10/23 21:50 POC BUN 13 mg/dl (7-18) 12/10/23 21:50 BUN 14 mg/dl (6-23) 12/10/23 21:40 Creatinine 0.77 mg/dl (0.6-1.2) 12/10/23 21:40 POC Creatinine 0.8 mg/dl (0.6-1.3) 12/10/23 21:50 Est Cr Clr Drug Dosing 67.0 ml/min 12/10/23 21:40 Est GFR ( Amer) 91.3 ml/min 12/10/23 21:40 Est GFR (Non-Af Amer) 78.8 ml/min 12/10/23 21:40 BUN/Creatinine Ratio 18.2 (10-20) 12/10/23 21:40 Glucose 127 mg/dl (70-99(Fasting)) H 12/10/23 21:40 POC Glucose 130 mg/dl (70-99) H 12/10/23 21:38 POC Glucose (other) 132 mg/dl (70-99) H 12/10/23 21:50 Calcium 9.0 mg/dl (8.6-10.3) 12/10/23 21:40 POC Ioniz Calcium Pratik 1.08 mmol/l (1.12-1.32) L 12/10/23 21:50 Magnesium 2.0 mg/dl (1.7-2.4) 12/10/23 21:40 Total Bilirubin 0.2 mg/dl (0.2-1.0) 12/10/23 21:40 AST 31 U/L (13-39) 12/10/23 21:40 ALT 29 U/L (7-52) 12/10/23 21:40 Alkaline Phosphatase 72 U/L (34-104) 12/10/23 21:40 Troponin I High Sens 78.5 pg/ml (0-14) H* D 12/10/23 23:51 Total Protein 7.7 gm/dl (6.0-8.3) 12/10/23 21:40 Albumin 4.8 gm/dl (3.4-5.0) 12/10/23 21:40 Globulin 2.9 gm/dl (2.5-4.0) 12/10/23 21:40 Albumin/Globulin Ratio 1.7 (0.9-2) 12/10/23 21:[address] 12/10/23 21:44 CR Exam(s): CT HEAD Without Contrast EXAM: CT Head Without Intravenous Contrast CLINICAL HISTORY: Reason for exam: neuro deficit, acute stroke suspected. TECHNIQUE: Axial computed tomography images of the head/brain without intravenous contrast. CTDI is 46.85 mGy and DLP is 677.48 mGy-cm. Automated exposure control was utilized for the study. A dose lowering technique was utilized adhering to the principles of ALARA. COMPARISON: No relevant prior studies available. FINDINGS: Brain: No hemorrhage, extra-axial fluid collection, mass effect, or edema. Ventricles: Unremarkable. Bones/joints: Unremarkable. No fracture. Soft tissues: Unremarkable. Sinuses: No acute sinusitis. Mastoid air cells: Unremarkable as visualized. IMPRESSION: 1. No acute intracranial abnormality. Communications: Call Doctor Stroke Electronically signed by: Richar Chopra MD 12/10/23 22:18 PM Head CTA 12/10/23 21:44 CR Exam(s): CTA HEAD With Contrast IV Amt: OPTIRAY 320 118ML EXAM: CT Angiography Head With Intravenous Contrast CLINICAL HISTORY: Reason for exam: neuro deficit, acute stroke suspected. TECHNIQUE: Axial computed tomographic angiography images of the head with intravenous contrast. CTDI is 57.23 mGy and DLP is 682.67 mGy-cm. Automated exposure control was utilized for the study. A dose lowering technique was utilized adhering to the principles of ALARA. MIP reconstructed images were created and reviewed. CONTRAST: Patient received OPTIRAY 320 118ML of IV contrast COMPARISON: No relevant prior studies available. FINDINGS: Right internal carotid artery: No acute findings. Intracranial segment is patent with no significant stenosis. No aneurysm. Right anterior cerebral artery: Unremarkable. No occlusion or significant stenosis. No aneurysm. Right middle cerebral artery: Unremarkable. No occlusion or significant stenosis. No aneurysm. Right posterior cerebral artery: Unremarkable. No occlusion or significant stenosis. No aneurysm. Right vertebral artery: Unremarkable as visualized. Left internal carotid artery: No acute findings. Intracranial segment is patent with no significant stenosis. No aneurysm. Left anterior cerebral artery: Unremarkable. No occlusion or significant stenosis. No aneurysm. Left middle cerebral artery: Unremarkable. No occlusion or significant stenosis. No aneurysm. Left posterior cerebral artery: Unremarkable. No occlusion or significant stenosis. No aneurysm. Left vertebral artery: Unremarkable as visualized. Basilar artery: Unremarkable. No occlusion or significant stenosis. No aneurysm. IMPRESSION: No acute abnormality. Communications: Call Doctor Stroke Electronically signed by: Richar Chopra MD 12/10/23 22:19 PM Neck CTA 12/10/23 21:44 CR Exam(s): CTA NECK With Contrast IV Amt: OPTIRAY 320 118ML EXAM: CT Angiography Neck With Intravenous Contrast CLINICAL HISTORY: Reason for exam: neuro deficit, acute stroke suspected. TECHNIQUE: Routine carotid CT angiography protocol was performed with intravenous contrast. NASCET criteria using the distal ICAs for comparison were used for evaluation of stenoses. CTDI is 12.75 mGy and DLP is 424.41 mGy-cm. Automated exposure control was utilized for the study. A dose lowering technique was utilized adhering to the principles of ALARA. MIP reconstructed images were created and reviewed. CONTRAST: Patient received OPTIRAY 320 118ML of IV contrast COMPARISON: None. FINDINGS: VASCULATURE: Right common carotid artery: Unremarkable. No occlusion or significant stenosis. No dissection. Right internal carotid artery: Unremarkable. Extracranial segment is patent with no occlusion or significant stenosis. No dissection. Right vertebral artery: Unremarkable. No occlusion or significant stenosis. No dissection. Left common carotid artery: Unremarkable. No occlusion or significant stenosis. No dissection. Left internal carotid artery: Unremarkable. Extracranial segment is patent with no occlusion or significant stenosis. No dissection. Left vertebral artery: Unremarkable. No occlusion or significant stenosis. No dissection. NECK: Bones/joints: Advanced degenerative changes within the cervical spine. No acute fracture. Soft tissues: Unremarkable. Lung apices: Clear. CAROTID STENOSIS REFERENCE USING NASCET CRITERIA: % ICA stenosis = (1 - narrowest ICA diameter/diameter of distal cervical ICA) x 100. Mild - <50% stenosis. Moderate - 50-69% stenosis. Severe - 70-94% stenosis. Near occlusion - 95-99% stenosis. Occluded - 100% stenosis. IMPRESSION: No acute abnormality. Communications: Call Doctor Stroke Electronically signed by: Richar Chopra MD 12/10/23 22:20 PM ECG Additional Comments: ECG. Normal sinus rhythm at the rate of 93. No significant change was found. Code Status & VTE Plan VTE Prophylaxis Plan VTE Prophylaxis will be ordered: Yes
[2023-12-11] MEDS: ROSUVASTATIN CALCIUM 5 MG TAB PO STA (03:42)
[2023-12-11] MEDS: FLUoxetine HCL 20 MG CAP PO STA (03:42)
[2023-12-11] MEDS: THIAMINE HCL 400 MG in SODIUM CHLORIDE 0.9% 50 ML IV STA (03:43)
[2023-12-11] MEDS: SODIUM CHLORIDE 0.9% 1,000 ML IV SCH (03:44)
[2023-12-11 04:36] LABS: Basophils # (auto) 0.01 K/uL (0.00-0.20); Basophils % (auto) 0.2 %; Eosinophils # (auto) 0.18 K/uL (0.00-0.50); Eosinophils % (auto) 3.1 %; Hemoglobin 13.1 g/dl (12.0-16.0); Immature Granulocytes # (auto) 0.01 K/uL (0.01-0.20); Immature Granulocytes % (auto) 0.2 %; Lymphocytes # (auto) 1.92 K/uL (1.20-3.40); Lymphocytes % (auto) 33.1 %; Mean Corpuscular Hemoglobin 30.1 pg (25.0-34.0); Mean Corpuscular Hgb Conc 34.5 g/dL (32.0-36.0); Mean Corpuscular Volume 87.4 fL (80.0-100.0); Mean Platelet Volume 8.9 fL (9.4-12.4); Monocytes # (auto) 0.58 K/uL (0.11-0.59); Neutrophils % (auto) 53.4 %; Platelet Count 246 K/uL (130-400); RDW Coefficient of Variation 11.9 % (11.5-14.5); RDW Standard Deviation 38.5 fL (36.4-46.3); Red Blood Count 4.35 M/uL (4.20-5.40)
[2023-12-11 04:53] LABS: BUN Creatinine Ratio 17.1 (10-20); Calcium 8.5 mg/dl (8.6-10.3); Creatinine Clr Calc Pharmacy 73.7 ml/min; Est GFR (African American) 102.5 ml/min; Est GFR (Non-African American) 88.4 ml/min; Potassium 3.8 mmol/L (3.5-5.1)
[2023-12-11 04:55] LABS: Chol HDL Ratio 3.1 (0-5)
[2023-12-11 07:32] LABS: Estimated Average Glucose 128 mg/dl; Hemoglobin A1C 6.1 % (4.5-5.6)
--- NOTE | 2023-12-11 07:44 | Cardiology Consultation ---
Date of Consultation December 11, 2023 Assessment & Plan (1) Transient global amnesia: (2) Elevated troponin: Plan IMPRESSION: 68 year old female with new onset short term memory loss. Patient without cardiac symptoms of chest pain, shortness of breath, or palpitations. No prior hx of CAD or CVA Hx troponin elevated 24.2>>78.5. EKG without acute ischemic changes. PLAN: Amnesia: Troponin elevated: Elevated troponin likely in the setting of demand vs neurologic event. Low likelihood for ACS. -Undergoing MRI and EEG per neurology. -Obtain resting echo to rule out structural heart disease. Recommend bubble study be performed to rule out PFO. -Continue ASA 81 mg daily and statin therapy -Monitor on telemetry while inpatient for atrial arrhythmias. Consider outpatient zio to rule out PAF. -Can consider outpatient stress testing. -Continue outpatients antihypertensive regimen with Lisinopril/HCTZ as ordered. Case discussed with Dr. Sr. Further recommendations pending his assessment. I spent a total of 40 minutes on the date of service in preparation, delivery, and documentation of the care provided to the patient excluding any time spent in the performance of separately billed services. KENISHA Oliveira Department of Cardiology, [facility] This chart was completed in part utilizing Speech Voice Recognition Software. Grammatical errors, random word insertions, pronoun errors, and incomplete sentences are an occasional consequence of this system due to software limitations, ambient noise, and hardware issues. Any formal questions or concerns about the content, text, or information contained within the body of this dictation should be directly addressed to the provider for clarification. Supervising Physician Co-Signing Physician Notes I have reviewed the advance practitioner's documentation, and I agree with, and take responsibility for the plan of care. 68-year-old female present to the emergency department with transient global amnesia. Cardiology consultation requested due to elevated high-sensitivity troponin. Patient denies any chest discomfort or unusual shortness of breath. No recent change or decline in exercise tolerance. ECG without ischemic changes. Bedside 2D transthoracic echocardiogram demonstrates preserved LV systolic function with normal wall motion. A/P: 68-year-old female transient global amnesia. Elevated high-sensitivity troponin without anginal symptoms, ischemic ECG changes, or regional wall motion abnormality per echocardiogram. No evidence of patent foramen ovale. With risk factors, consider outpatient stress testing for further evaluation. No further inpatient cardiac testing or intervention recommended at this time. Continue current medications including aspirin, Zestoretic, and rosuvastatin. I spent a total of 20 minutes on the date of service in preparation, delivery, and documentation of the care provided to this patient, excluding any time spent in the performance of separately billed services. History of Present Illness Reason for Consultation: Elevated troponin Requesting Physician: Julia hospitalist Attending Physician: David Mendes MD History of Present Illness 68-year-old female who presented to [facility] emergency department last evening due sudden memory loss/amnesia. Notes that she was watching television and suddenly could not remember anything from earlier in the day. She is unsure when the memory loss occurred but in the evening she became when she realized. Did not lose jail memory only her short term of the day. Symptoms have improved, but notes that yesterday is still a blur to her. A few days prior to this episode she was having sharp left temporal pain. CTA of the head and neck were unremarkable. Neurology recommended MRI and EEG. Patient was already on aspirin and statin. High-sensitivity troponins elevated: 24.2>>78.5. Cardiology consulted. EKG showed normal sinus rhythm, 69 bpm--no acute ST segment changes suggestive of ischemia. Echo pending. Upon entrance into the room patient resting in bed eating breakfast. at bedside. No chest pain, shortness of breath, palpitations, dizziness, syncope or near syncope. No orthopnea, PND, or increased lower extremity edema. No fever, chills, cough, hematochezia, melena, or hemoptysis. She is an active/independent individual. No functional decline over the last 6 months. No history of tobacco use. No alcohol or drug use. Denies prior cardiac history except hypertension and hyperlipidemia. Strong family history of CAD and CVA on her maternal side. Notes that her mother had multiple open heart sugeries-- was a intermodal truck driver smoker. Past medical history: Hypertension Dyslipidemia Prediabetes JUAN PABLO Allergies Allergy/AdvReac Type Severity Reaction Status Date / Time oxytocin Allergy Mild ILLNESS Verified 12/10/23 23:53 Home Medications Medication Instructions Recorded Confirmed Type albuterol sulfate 90 mcg/actuation 1 inh inhalation DIRECTED PRN 12/10/23 12/10/23 History aerosol inhaler Shortness Of Breath Or Wheezing aspirin 81 mg tablet,delayed 81 mg PO HS 12/10/23 12/10/23 History release fluoxetine 20 mg capsule 20 mg PO HS 12/10/23 12/10/23 History fluticasone propionate 50 1 spray intranasal HS 12/10/23 12/10/23 History mcg/actuation nasal spray,suspension lisinopril 10 1 tab PO HS 12/10/23 12/10/23 History mg-hydrochlorothiazide 12.5 mg tablet metformin 500 mg tablet 500 mg PO BIDM 12/10/23 12/10/23 History rosuvastatin 5 mg tablet 5 mg PO HS 12/10/23 12/10/23 History Patient History Social History Smoking Status: Never smoker Hx Alcohol Use: No Preferred Language: Mauritian Communication Ability: Effective Inventory Taker Required: No Beliefs That Will Affect Care: None Current Living Situation: Spouse Current Living Situation Comment: Larry- Feels Safe at Home: Yes Safety Concerns: Feels Safe At This Time Assistive Devices: Glasses Review of Systems Review of Systems: All systems reviewed & are unremarkable except as noted in HPI & below Physical Exam Constitutional: WD/WN, vitals as above no acute distress Neck: normal visual inspection and trachea midline Respiratory: normal respiratory effort, lungs clear to auscultation Cardiovascular: RRR, no murmur, no edema Heart Sounds: normal S1 and normal S2; no murmur Vessels: no JVD Extremities: no edema Gastrointestinal (Abdomen): normal bowel sounds, soft, nontender, no hepatosplenomegaly Musculoskeletal: no cyanosis or clubbing, extremities motor strength 5/5 Skin: no rashes, warm and dry Neurologic: PERRL, EOMI, accommodation nl, no face palsy, no dysarthria Psychiatric: A+Ox3, euthymic affect Results & Data Vital Signs (Past 12 Hours) Vital Signs Temp Pulse Pulse Resp BP BP Pulse Ox 12/11/23 07:00 67 16 96 12/11/23 06:00 93 H 17 95 12/11/23 05:00 65 22 97 12/11/23 04:00 71 15 95 12/11/23 04:00 144/78 H 12/11/23 04:00 12/11/23 04:00 71 18 144/78 H 96 12/11/23 03:16 65 20 96 12/11/23 03:16 151/83 H 12/11/23 03:08 96 12/11/23 02:15 158/86 H 12/11/23 02:15 71 22 98 12/11/23 02:00 70 23 96 12/11/23 02:00 67 12/11/23 01:00 69 22 96 12/11/23 01:00 69 20 146/78 H 95 12/11/23 00:41 146/78 H 12/11/23 00:41 70 19 95 12/11/23 00:04 84 10 L 93 12/10/23 23:45 145/112 H 12/10/23 23:45 78 24 95 12/10/23 23:30 83 20 96 12/10/23 23:30 143/87 H 12/10/23 23:16 184/96 H 12/10/23 23:16 84 17 95 12/10/23 23:00 89 15 96 12/10/23 23:00 146/84 H 12/10/23 23:00 86 20 146/84 H 94 12/10/23 22:45 95 H 23 95 12/10/23 22:45 180/100 H 12/10/23 22:31 174/100 H 12/10/23 22:31 94 H 23 12/10/23 22:16 182/89 H 12/10/23 22:16 93 H 21 96 12/10/23 22:00 161/87 H 12/10/23 22:00 93 H 23 94 12/10/23 22:00 90 12/10/23 21:59 89 2 L 95 12/10/23 21:57 162/74 H 12/10/23 21:20 36.4 C L 94 H 20 186/96 H 97 Pulse Ox O2 Del Method O2 Del Method O2 Flow Rate 12/11/23 07:00 12/11/23 06:00 12/11/23 05:00 12/11/23 04:00 12/11/23 04:00 12/11/23 04:00 96 Room Air 0 12/11/23 04:00 Room Air 12/11/23 03:16 12/11/23 03:16 12/11/23 03:08 12/11/23 02:15 12/11/23 02:15 12/11/23 02:00 12/11/23 02:00 03/18/24 01:00 12/11/23 01:00 Room Air 12/11/23 00:41 12/11/23 00:41 12/11/23 00:04 12/10/23 23:45 12/10/23 23:45 12/10/23 23:30 12/10/23 23:30 12/10/23 23:16 12/10/23 23:16 12/10/23 23:00 12/10/23 23:00 12/10/23 23:00 Room Air 12/10/23 22:45 12/10/23 22:45 12/10/23 22:31 12/10/23 22:31 12/10/23 22:16 12/10/23 22:16 12/10/23 22:00 12/10/23 22:00 12/10/23 22:00 12/10/23 21:59 12/10/23 21:57 12/10/23 21:20 Room Air Laboratory Results Cardiac Enzymes 12/10/23 12/10/23 Range/Units 21:40 23:51 AST 31 (13-39) U/L Troponin I High Sens 24.2 H 78.5 H* D (0-14) pg/ml Coagulation 12/10/23 Range/Units 21:40 PT 10.3 (9.0-12.0) Seconds APTT 30 (21-31) Seconds Lipids 12/11/23 Range/Units 04:25 Triglycerides 159 H (0-150) mg/dl Cholesterol 135 (0-200) mg/dl HDL Cholesterol 44 mg/dl Cholesterol/HDL Ratio 3.1 (0-5) CBC 12/10/23 12/11/23 Range/Units 21:40 04:25 WBC 6.25 5.80 (4.8-10.8) K/ul RBC 4.90 4.35 (4.20-5.40) M/uL Hgb 15.1 13.1 (12.0-16.0) g/dl Hct 42.3 38.0 (37.0-47.0) % Plt Count 337 246 (130-400) K/uL Neut # (Auto) 3.27 3.10 (1.40-6.50) K/uL Lymph # (Auto) 2.26 1.92 (1.20-3.40) K/uL [place] # (Auto) 0.49 0.58 (0.11-0.59) K/uL Eos # (Auto) 0.21 0.18 (0.00-0.50) K/uL Baso # (Auto) 0.01 0.01 (0.00-0.20) K/uL Comprehensive Metabolic Panel 12/10/23 12/11/23 Range/Units 21:40 04:25 Sodium 138 138 (136-145) mmol/L Potassium 3.2 L 3.8 (3.5-5.1) mmol/L Chloride 99 105 (98-107) mmol/L Carbon Dioxide 29 26 (21-32) mmol/L BUN 14 12 (6-23) mg/dl Creatinine 0.77 0.70 (0.6-1.2) mg/dl Glucose 127 H 114 H (70-99(Fasting)) mg/dl Calcium 9.0 8.5 L (8.6-10.3) mg/dl AST 31 (13-39) U/L ALT 29 (7-52) U/L Alkaline Phosphatase 72 (34-104) U/L Total Protein 7.7 (6.0-8.3) gm/dl Albumin 4.8 (3.4-5.0) gm/dl Intake and Output 12/10/23 12/11/23 12/11/23 22:59 06:59 14:59 Intake Total 54 / 54 Balance 54 / 54 Intake: IV 54 / 54 Thiamine HCl 400 mg In Sodium 54 / 54 Chloride 0.9% 50 ml @ 210 mls/ hr IV NOW STA Rx#:[id number] Other: # Unmeasured Voids 1 Weight 75.3 kg Weight Measurement Method Chair Scale
--- NOTE | 2023-12-11 09:00 | Electrocardiogram Report ---
Test Reason : Blood Pressure : / mmHG Vent. Rate : 093 BPM Atrial Rate : 093 BPM P-R Int : 204 ms QRS Dur : 082 ms QT Int : 382 ms P-R-T Axes : 059 -02 017 degrees QTc Int : 474 ms Normal sinus rhythm Normal ECG When compared with ECG of 03-MAY-2009 02:44, No significant change was found Confirmed by Ralf Bazzi ([id number] on 12/11/2023 9:00:10 AM Referred By: REFERRED SELF Confirmed By:Sameer Bazzi
--- NOTE | 2023-12-11 09:02 | Electrocardiogram Report ---
Test Reason : Blood Pressure : / mmHG Vent. Rate : 069 BPM Atrial Rate : 069 BPM P-R Int : 178 ms QRS Dur : 084 ms QT Int : 416 ms P-R-T Axes : 044 -07 007 degrees QTc Int : 445 ms Normal sinus rhythm When compared with ECG of 10-DEC-2023 22:02, (unconfirmed) Minimal criteria for Anterior infarct are now Present Confirmed by Ralf Bazzi ([id number]) on 12/11/2023 9:01:52 AM Referred By: REFERRED SELF Confirmed By:Sameer Bazzi
[2023-12-11] MEDS: LORazepam 0.5 MG TAB PO PRN (09:07)
[2023-12-11] MEDS: LORazepam 0.5 MG in SYRINGE 0.25 ML IV ONE (09:48)
[2023-12-11] MEDS: GADOBUTROL 65ML VIAL IV ONE (11:05)
[2023-12-11] MEDS: ACETAMINOPHEN 325 MG TAB PO PRN (11:34)
--- NOTE | 2023-12-11 11:48 | Magnetic Resonance Report ---
MRI OF THE BRAIN COMBO CLINICAL HISTORY: Strokelike symptoms. COMPARISON STUDY: CT of the brain dated 12/10/2023. TECHNIQUE: MRI of the brain was performed utilizing various T1 and T2-weighted sequences in the axial , sagittal, and coronal planes. Contrast-enhanced sequences were acquired following the administratio n of 7.5 cc of Gadavist. The examination is degraded by motion artifact. FINDINGS: Brain parenchyma: There is age-related involutional change noting mild subcortical and periventricula r microangiopathic disease. There is no hemorrhage or mass effect. There is no restricted diffusion t o suggest acute ischemia. No enhancing mass lesion is identified on the postcontrast images. Pham-whi te matter differentiation is preserved. No extra-axial fluid collection is seen. The cerebellar tonsi ls are normal in configuration. Ventricles, sulci, and cisterns: Prominent secondary to involutional change. Pituitary and sella: Unremarkable. Intracranial vasculature: Normal flow voids are maintained at the skull base. Orbits: The bony orbits are grossly intact. Orbital contents are normal in appearance. Sinuses and mastoids: There is mild mucosal thickening within the maxillary antra. The remaining para nasal sinuses and the mastoid air cells are clear. Calvarium: Unremarkable. Cervical cord: Partially visualized cervical spinal cord is normal in morphology and signal intensity . IMPRESSION: No acute intracranial abnormality is identified noting a motion degraded examination ACT 112: Negative or not required by law. Electronically signed by: Diony Mccoy M.D. 12/11/2023 11:47 AM
--- NOTE | 2023-12-11 15:06 | Electroencephalogram ---
EEG Procedure Note Date of Service December 11, 2023 Start / End Times Start Time: 07:11 End Time: 07:31 Referring Physician Nain Ohara MD History A 68-year-old female with episode of confusion and memory loss. EEG performed for evaluation of epileptiform activity. Home Medication List Medication Instructions Recorded Confirmed Type albuterol sulfate 90 mcg/actuation 1 inh inhalation DIRECTED PRN 12/10/23 12/10/23 History aerosol inhaler Shortness Of Breath Or Wheezing aspirin 81 mg tablet,delayed 81 mg PO HS 12/10/23 12/10/23 History release fluoxetine 20 mg capsule 20 mg PO HS 12/10/23 12/10/23 History fluticasone propionate 50 1 spray intranasal HS 12/10/23 12/10/23 History mcg/actuation nasal spray,suspension lisinopril 10 1 tab PO HS 12/10/23 12/10/23 History mg-hydrochlorothiazide 12.5 mg tablet metformin 500 mg tablet 500 mg PO BIDM 12/10/23 12/10/23 History rosuvastatin 5 mg tablet 5 mg PO HS 12/10/23 12/10/23 History Inpatient Medication List Acetaminophen (Acetaminophen 325 Mg Tab) 650 mg PO Q4H PRN PRN Reason: Pain or Fever Stop: 01/10/24 03:04 Last Admin: 12/11/23 11:34 Dose: 650 mg Documented By: SARI Sodium Chloride (Nss) 1,000 mls @ 75 mls/hr IV .[id number] FRANCISCA Stop: 12/11/23 16:24 Last Admin: 12/11/23 03:44 Dose: 75 mls/hr Documented By: YOUSUF Discontinued Medications Aspirin (Aspirin 81 Mg Chew) 324 mg PO NOW STA Stop: 12/10/23 23:25 Last Admin: 12/10/23 23:32 Dose: 324 mg Documented By: ESTELLA Fluoxetine HCl (Fluoxetine Hcl 20 Mg Cap) 20 mg PO NOW STA Stop: 12/11/23 02:54 Last Admin: 12/11/23 03:42 Dose: 20 mg Documented By: YOUSUF Gadobutrol (Gadobutrol 65ml Vial) 7.5 ml IV ONCE ONE Stop: 12/11/23 11:21 Last Admin: 12/11/23 11:05 Dose: 7.5 ml Documented By: SUKHDEEP Thiamine HCl 400 mg/ Sodium (Chloride) 54 mls @ 210 mls/hr IV NOW STA Stop: 12/11/23 03:20 Last Infusion: 12/11/23 04:08 Dose: Infused Documented By: Admin: 12/11/23 03:43 Dose: 210 mls/hr Documented By: YOUSUF Lorazepam 0.5 mg/ Syringe 0.5 mls @ 2 mls/min IV ONE ONE Stop: 12/11/23 09:31 Last Admin: 12/11/23 09:48 Dose: 2 mls/min Documented By: MARY Ioversol (Optiray 320 125ml) 118 ml IV ONCE ONE Stop: 12/10/23 21:52 Last Admin: 12/10/23 21:51 Dose: 118 ml Documented By: SAMINA Lorazepam (Lorazepam 0.5 Mg Tab) 0.5 mg PO ONE PRN PRN Reason: PRIOR TO MRI Last Admin: 12/11/23 09:07 Dose: 0.5 mg Documented By: SWDivina Potassium Chloride (Potassium Chloride 10 Meq Tabcr) 40 meq PO NOW STA Stop: 12/10/23 23:25 Last Admin: 12/10/23 23:31 Dose: 40 meq Documented By: ESTELLA Rosuvastatin Calcium (Rosuvastatin Calcium 5 Mg Tab) 5 mg PO NOW STA Stop: 12/11/23 02:54 Last Admin: 12/11/23 03:42 Dose: 5 mg Documented By: YOUSUF Description This is a 21 electrode EEG with a single channel dedicated to limited EKG. The electrodes were placed in accordance with the International 10-20 system. REPORT: At the onset of the EEG the patient is awake. The background is symmetric and well organized. The background predominantly consisted of low- voltage 11 and 12 hertz theta activity with intermixed low-amplitude indeterminate fast frequencies. Drowsiness is characterized by increased theta activity, reduced blink rate, and decreased myogenic artifact. Photic stimulat ion does not induce any abnormalities. No stage 2 sleep transients are seen. Interpretation IMPRESSION: This is a normal awake and drowsy routine EEG. Excessive beta activity is a normal variant and likely a side effect of medication (ie benzodiazepines). There is no evidence of epileptiform activity.
--- NOTE | 2023-12-11 15:46 | Neurology Consultation ---
Date of Consultation December 11, 2023 Assessment & Plan (1) Transient global amnesia: The patient is presenting with a classical case of transient global amnesia. Differential diagnosis includes acute ischemic event, versus seizure, hypoperfusion event, alcohol related, benzodiazepine related. MRI of the brain with no acute changes. CTA with no significant vascular abnormalities. EEG with no acute changes except for increased beta activity due to benzodiazepine use. Plan Continue aspirin and statin. Agree with an echocardiogram, cardiac workup with a Zio patch. Advised against the use of alcohol or benzodiazepines. Follow-up with cardiology and neurology as outpatient. Okay for discharge from neurology standpoint Telehealth Consultation Telehealth Information Telehealth Information: I performed this visit using a real-time telehealth connection between my location and the patients location ([facility]). After connecting through interactive tele-video, patient was identified by name and date of and/or wristband check.Patient (or authorized healthcare hardware supplies sales representative) was informed that this was a telemedicine visit and it was being conducted confidentially over secure lines. My office door was closed and no one else was present in the room with me.Patient (or authorized healthcare hardware supplies sales representative) provided consent to proceed with the visit, expressed an understanding of privacy and security of the telemedicine visit, and gave permission to have a hospital hardware supplies sales representative in the room in order to assist with the visit and to conduct portions of the visit, as needed. I informed the patient (or authorized healthcare hardware supplies sales representative) that I reviewed their record and presented the opportunity for them to ask any questions regarding the visit today. The patient agreed to participate. History of Present Illness Reason for Consultation: TGA Requesting Physician: Dr Mendes Attending Physician: David Mendes MD History of Present Illness Mrs Sean jason is a 68-year-old female patient with a PMH of HTN, HLP, JUAN PABLO on CPAP, also history of anxiety and depression with reported occasional alcohol use who presented to the emergency room yesterday after a confusional event. She states that she was watching TV with her suddenly she stood up and felt confused, she stated that she could not remember anything, her initially thought that she was choking but then saw her tearing as she was saying that she could not remember what happened today so he started reminding her that [facility] they also had a video call with her son and granddaughter. The patient could not remember any of these events so they presented to the emergency room. The patient kept asking the same questions over and over again on the way to the ED, her condition improved after few hours of ED arrival. The patient tells me today that she remembers that she was in the emergency room and remembers today's date. She also has regained most of the memory as of yesterday although some events remains vague. She denies any other focal neurological deficits denies any weakness or numbness, denies any gait instability, denies any headaches or difficulties with speech. There has been no recent illnesses. Yesterday she was anxious and had some chest pains. Cardiology has evaluated her. Allergies Allergy/AdvReac Type Severity Reaction Status Date / Time oxytocin Allergy Mild ILLNESS Verified 12/10/23 23:53 Home Medications Medication Instructions Recorded Confirmed Type albuterol sulfate 90 mcg/actuation 1 inh inhalation DIRECTED PRN 12/10/23 12/10/23 History aerosol inhaler Shortness Of Breath Or Wheezing aspirin 81 mg tablet,delayed 81 mg PO HS 12/10/23 12/10/23 History release fluoxetine 20 mg capsule 20 mg PO HS 12/10/23 12/10/23 History fluticasone propionate 50 1 spray intranasal HS 12/10/23 12/10/23 History mcg/actuation nasal spray,suspension lisinopril 10 1 tab PO HS 12/10/23 12/10/23 History mg-hydrochlorothiazide 12.5 mg tablet metformin 500 mg tablet 500 mg PO BIDM 12/10/23 12/10/23 History rosuvastatin 5 mg tablet 5 mg PO HS 12/10/23 12/10/23 History Patient History Social History Smoking Status: Never smoker Hx Alcohol Use: No Preferred Language: Kazakh Communication Ability: Effective Chief Medical Director Required: No Beliefs That Will Affect Care: None Current Living Situation: Spouse Current Living Situation Comment: Larry- Feels Safe at Home: Yes Safety Concerns: Feels Safe At This Time Assistive Devices: Glasses Review of Systems Constitutional: Patient denies weight loss, fever, chills, and night sweats Eyes: Patient denies change in vision, tearing, pain, and redness ENT: Patient denies pain, bleeding, rhinorrhea, and dysphagia Cardiovascular: Patient denies chest pain, palpitation, dyspnea at rest, and dyspnea with exertion Respiratory: Patient denies shortness of breath, cough, wheezing, and productive cough GI: Patient denies reflux, pain, constipation, and diarrhea Skin: Patient denies rash, dryness, and itching Allergies/Immune System: Patient denies rhinorrhea, seasonal allergies, reaction to current MEDS, and joint swelling Endocrine: Patient denies weight loss, weight gain, temperature intolerance, and excessive thirst Neurological: All negative unless mentioned in the HPI Physical Exam General Constitutional: Appearance normally developed Head and face: normocephalic and atraumatic Eyes: no ptosis, no anisocoria, and no dysconjugate gaze Respiratory: normal effort Cardiovascular: regular rhythm and regular rate Abdomen: non distended Skin: no rashes, lesions, or ulcers noted Psychiatric: normal judgement and insight, normal mood, and normal affect NEUROLOGIC EXAMINATION: Mental Status:alert, oriented to time, place, person, normal recent memory, normal remote memory, normal attention span, normal concentration, normal language and normal fund of knowledge Cranial Nerves: CN 2 - no visual defect on confrontation and pupils round, equal, reactive to light CN 3, 4, 6 - extra-ocular movements intact and no nystagmus CN 5 - facial sensation intact CN 7 - no facial asymmetry CN 8 - intact hearing CN 9, 10 - palate symmetric, normal gag CN 11 - good shoulder shrug CN 12 - tongue midline MOTOR: Strength was at least antigravity throughout, Pronator drift was absent and There were no abnormal movements SENSATION: intact and symmetric to pinprick, light touch, vibration and joint position GAIT: stable, no ataxia and can perform tandem walking COORDINATION: no ataxia with finger to nose testing and heel to smith testing REFLEXES: cannot assess over telemedicine Results & Data Vital Signs (Past 12 Hours) Vital Signs Temp Pulse Pulse Resp BP BP Pulse Ox 12/11/23 11:25 36.4 C L 67 20 145/76 H 95 12/11/23 07:47 66 12/11/23 07:00 67 16 96 12/11/23 06:00 93 H 17 95 12/11/23 05:00 65 22 97 12/11/23 04:00 71 15 95 12/11/23 04:00 144/78 H 12/11/23 04:00 03/18/24 04:00 71 18 144/78 H 96 Pulse Ox O2 Del Method O2 Del Method O2 Flow Rate 12/11/23 11:25 Room Air 12/11/23 07:47 12/11/23 07:00 12/11/23 06:00 12/11/23 05:00 12/11/23 04:00 12/11/23 04:00 12/11/23 04:00 96 Room Air 0 12/11/23 04:00 Room Air Laboratory Results Laboratory Results - last 24 hr 12/10/23 12/10/23 12/10/23 21:38 21:40 21:50 WBC 6.25 RBC 4.90 Hgb 15.1 POC Hgb 15.0 Hct 42.3 POC Hct 44 MCV 86.3 MCH 30.8 MCHC 35.7 RDW Std Deviation 38.0 RDW Coeff of Sridhar 12.0 Plt Count 337 MPV 9.4 Immature Gran % (Auto) 0.2 Neut % (Auto) 52.2 Lymph % (Auto) 36.2 [place] % (Auto) 7.8 Eos % (Auto) 3.4 Baso % (Auto) 0.2 Neut # (Auto) 3.27 Lymph # (Auto) 2.26 [place] # (Auto) 0.49 Eos # (Auto) 0.21 Baso # (Auto) 0.01 Immature Gran # (Auto) 0.01 ESR PT 10.3 INR 0.9 APTT 30 PTT Ratio 1.1 POC Sodium 140 Sodium 138 POC Potassium 3.2 L Potassium 3.2 L POC Chloride 99 L Chloride 99 Carbon Dioxide 29 POC Total CO2 32 H Anion Gap 10 POC Anion Gap 13.0 L POC BUN 13 BUN 14 Creatinine 0.77 POC Creatinine 0.8 Est Cr Clr Drug Dosing 67.0 Est GFR ( Amer) 91.3 Est GFR (Non-Af Amer) 78.8 BUN/Creatinine Ratio 18.2 Glucose 127 H POC Glucose 130 H POC Glucose (other) 132 H Estimat Average Glucose Hemoglobin A1c Calcium 9.0 POC Ioniz Calcium Pratik 1.08 L Magnesium 2.0 Total Bilirubin 0.2 AST 31 ALT 29 Alkaline Phosphatase 72 Troponin I High Sens 24.2 H Total Protein 7.7 Albumin 4.8 Globulin 2.9 Albumin/Globulin Ratio 1.7 Triglycerides Cholesterol LDL Cholesterol, Calc VLDL Cholesterol, Calc HDL Cholesterol Cholesterol/HDL Ratio 03/12/11/23 12/11/23 23:51 04:25 12:24 WBC 5.80 RBC 4.35 Hgb 13.1 POC Hgb Hct 38.0 POC Hct MCV 87.4 MCH 30.1 MCHC 34.5 RDW Std Deviation 38.5 RDW Coeff of Sridhar 11.9 Plt Count 246 MPV 8.9 L Immature Gran % (Auto) 0.2 Neut % (Auto) 53.4 Lymph % (Auto) 33.1 [place] % (Auto) 10.0 Eos % (Auto) 3.1 Baso % (Auto) 0.2 Neut # (Auto) 3.10 Lymph # (Auto) 1.92 [place] # (Auto) 0.58 Eos # (Auto) 0.18 Baso # (Auto) 0.01 Immature Gran # (Auto) 0.01 ESR 3 PT INR APTT PTT Ratio POC Sodium Sodium 138 POC Potassium Potassium 3.8 POC Chloride Chloride 105 Carbon Dioxide 26 POC Total CO2 Anion Gap 7 POC Anion Gap POC BUN BUN 12 Creatinine 0.70 POC Creatinine Est Cr Clr Drug Dosing 73.7 Est GFR ( Amer) 102.5 Est GFR (Non-Af Amer) 88.4 BUN/Creatinine Ratio 17.1 Glucose 114 H POC Glucose POC Glucose (other) Estimat Average Glucose 128 Hemoglobin A1c 6.1 H Calcium 8.5 L POC Ioniz Calcium Pratik Magnesium Total Bilirubin AST ALT Alkaline Phosphatase Troponin I High Sens 78.5 H* D 79.0 H* Total Protein Albumin Globulin Albumin/Globulin Ratio Triglycerides 159 H Cholesterol 135 LDL Cholesterol, Calc 59 VLDL Cholesterol, Calc 32 H HDL Cholesterol 44 Cholesterol/HDL Ratio 3.[address] 12/10/23 21:44 CR Exam(s): CT HEAD Without Contrast EXAM: CT Head Without Intravenous Contrast CLINICAL HISTORY: Reason for exam: neuro deficit, acute stroke suspected. TECHNIQUE: Axial computed tomography images of the head/brain without intravenous contrast. CTDI is 46.85 mGy and DLP is 677.48 mGy-cm. Automated exposure control was utilized for the study. A dose lowering technique was utilized adhering to the principles of ALARA. COMPARISON: No relevant prior studies available. FINDINGS: Brain: No hemorrhage, extra-axial fluid collection, mass effect, or edema. Ventricles: Unremarkable. Bones/joints: Unremarkable. No fracture. Soft tissues: Unremarkable. Sinuses: No acute sinusitis. Mastoid air cells: Unremarkable as visualized. IMPRESSION: 1. No acute intracranial abnormality. Communications: Call Doctor Stroke Electronically signed by: Richar Chopra MD 12/10/23 22:18 PM Head CTA 12/10/23 21:44 CR Exam(s): CTA HEAD With Contrast IV Amt: OPTIRAY [id number] 118ML EXAM: CT Angiography Head With Intravenous Contrast CLINICAL HISTORY: Reason for exam: neuro deficit, acute stroke suspected. TECHNIQUE: Axial computed tomographic angiography images of the head with intravenous contrast. CTDI is 57.23 mGy and DLP is 682.67 mGy-cm. Automated exposure control was utilized for the study. A dose lowering technique was utilized adhering to the principles of ALARA. MIP reconstructed images were created and reviewed. CONTRAST: Patient received OPTIRAY 320 118ML of IV contrast COMPARISON: No relevant prior studies available. FINDINGS: Right internal carotid artery: No acute findings. Intracranial segment is patent with no significant stenosis. No aneurysm. Right anterior cerebral artery: Unremarkable. No occlusion or significant stenosis. No aneurysm. Right middle cerebral artery: Unremarkable. No occlusion or significant stenosis. No aneurysm. Right posterior cerebral artery: Unremarkable. No occlusion or significant stenosis. No aneurysm. Right vertebral artery: Unremarkable as visualized. Left internal carotid artery: No acute findings. Intracranial segment is patent with no significant stenosis. No aneurysm. Left anterior cerebral artery: Unremarkable. No occlusion or significant stenosis. No aneurysm. Left middle cerebral artery: Unremarkable. No occlusion or significant stenosis. No aneurysm. Left posterior cerebral artery: Unremarkable. No occlusion or significant stenosis. No aneurysm. Left vertebral artery: Unremarkable as visualized. Basilar artery: Unremarkable. No occlusion or significant stenosis. No aneurysm. IMPRESSION: No acute abnormality. Communications: Call Doctor Stroke Electronically signed by: Richar Chopra MD 12/10/23 22:19 PM Neck CTA 12/10/23 21:44 CR Exam(s): CTA NECK With Contrast IV Amt: OPTIRAY [id number] 118ML EXAM: CT Angiography Neck With Intravenous Contrast CLINICAL HISTORY: Reason for exam: neuro deficit, acute stroke suspected. TECHNIQUE: Routine carotid CT angiography protocol was performed with intravenous contrast. NASCET criteria using the distal ICAs for comparison were used for evaluation of stenoses. CTDI is 12.75 mGy and DLP is 424.41 mGy-cm. Automated exposure control was utilized for the study. A dose lowering technique was utilized adhering to the principles of ALARA. MIP reconstructed images were created and reviewed. CONTRAST: Patient received OPTIRAY 320 118ML of IV contrast COMPARISON: None. FINDINGS: VASCULATURE: Right common carotid artery: Unremarkable. No occlusion or significant stenosis. No dissection. Right internal carotid artery: Unremarkable. Extracranial segment is patent with no occlusion or significant stenosis. No dissection. Right vertebral artery: Unremarkable. No occlusion or significant stenosis. No dissection. Left common carotid artery: Unremarkable. No occlusion or significant stenosis. No dissection. Left internal carotid artery: Unremarkable. Extracranial segment is patent with no occlusion or significant stenosis. No dissection. Left vertebral artery: Unremarkable. No occlusion or significant stenosis. No dissection. NECK: Bones/joints: Advanced degenerative changes within the cervical spine. No acute fracture. Soft tissues: Unremarkable. Lung apices: Clear. CAROTID STENOSIS REFERENCE USING NASCET CRITERIA: % ICA stenosis = (1 - narrowest ICA diameter/diameter of distal cervical ICA) x 100. Mild - <50% stenosis. Moderate - 50-69% stenosis. Severe - 70-94% stenosis. Near occlusion - 95-99% stenosis. Occluded - 100% stenosis. IMPRESSION: No acute abnormality. Communications: Call Doctor Stroke Electronically signed by: Richar Chopra MD 12/10/23 22:20 PM Brain MRI 12/11/23 03:05 MRI OF THE BRAIN COMBO CLINICAL HISTORY: Strokelike symptoms. COMPARISON STUDY: CT of the brain dated 12/10/2023. TECHNIQUE: MRI of the brain was performed utilizing various T1 and T2-weighted sequences in the axial, sagittal, and coronal planes. Contrast-enhanced sequences were acquired following the administration of 7.5 cc of Gadavist. The examination is degraded by motion artifact. FINDINGS: Brain parenchyma: There is age-related involutional change noting mild subcortical and periventricular microangiopathic disease. There is no hemorrhage or mass effect. There is no restricted diffusion to suggest acute ischemia. No enhancing mass lesion is identified on the postcontrast images. Pham-white matter differentiation is preserved. No extra-axial fluid collection is seen. The cerebellar tonsils are normal in configuration. Ventricles, sulci, and cisterns: Prominent secondary to involutional change. Pituitary and sella: Unremarkable. Intracranial vasculature: Normal flow voids are maintained at the skull base. Orbits: The bony orbits are grossly intact. Orbital contents are normal in appearance. Sinuses and mastoids: There is mild mucosal thickening within the maxillary antra. The remaining paranasal sinuses and the mastoid air cells are clear. Calvarium: Unremarkable. Cervical cord: Partially visualized cervical spinal cord is normal in morphology and signal intensity. IMPRESSION: No acute intracranial abnormality is identified noting a motion degraded examination ACT 112: Negative or not required by law. Electronically signed by: Diony Mccoy M.D. 12/11/2023 11:47 AM Medications Administered Home Medications Medication Instructions Recorded Confirmed Last Taken albuterol sulfate 90 mcg/actuation 1 inh inhalation DIRECTED PRN 12/10/23 12/10/23 Unknown aerosol inhaler Shortness Of Breath Or Wheezing aspirin 81 mg tablet,delayed 81 mg PO HS 12/10/23 12/10/23 12/09/23 release fluoxetine 20 mg capsule 20 mg PO HS 12/10/23 12/10/23 12/09/23 fluticasone propionate 50 1 spray intranasal HS 12/10/23 12/10/23 12/09/23 mcg/actuation nasal spray,suspension lisinopril 10 1 tab PO HS 12/10/23 12/10/23 12/09/23 mg-hydrochlorothiazide 12.5 mg tablet metformin 500 mg tablet 500 mg PO BIDM 12/10/23 12/10/23 12/10/23 08:00 rosuvastatin 5 mg tablet 5 mg PO HS 12/10/23 12/10/23 12/09/23 Active Medications Generic Name Dose Route Start Last Admin Trade Name Freq PRN Reason Stop Dose Admin Acetaminophen 650 mg 12/11/23 03:05 12/11/23 11:34 Acetaminophen 325 Mg Tab PO 01/10/24 03:04 650 mg Q4H PRN Administration Pain or Fever Sodium Chloride 1,000 mls @ 75 mls/hr 12/11/23 03:05 12/11/23 03:44 Nss IV 12/11/23 16:24 75 mls/hr .[id number] FRANCISCA Administration
--- NOTE | 2023-12-11 16:45 | Discharge Summary ---
Date of Service December 11, 2023 Admission HPI Per Admitting Provider 68-year-old female with past medical history significant for dyslipidemia, prediabetes, mild intermittent asthma, obstructive sleep apnea, mixed rhinitis, hypertension, sialadenitis, urge incontinence of urine, degenerative's disease, history of jaw pain, general anxiety disorder, primary insomnia, presents with transient global amnesia. Around 9 PM tonight patient was watching TV and for about 40 minutes she could not remember anything. Currently her memory is back. Resting comfortably. Last couple of days she has sharp pain on and off in the left temporal region of the head but that got resolved now. No dizziness. No blurred visions or double visions.. No runny nose. No sore throat. No cough. No nausea. No difficulty swallowing. No chest pain. No shortness of breath. No abdominal pain. Normal bowel and bladder movements. Ambulating okay. Hemodynamics are okay. Past medical history. As mentioned above Past surgical history. Arthrocentesis intermitted bursa . . Colonoscopy. Cystoscopy. Dental surgery. Hysteroscopy with biopsy and polypectomy. Excision of inclusion cyst both upper eyelids. Tonsillectomy and adenoidectomy. Repair of bladder defect. Social history. . No smoking. Alcohol rarely. No drug use. Family history. Father had allergies. Mother had diabetes. Son has asthma. Allergies. Brother has asthma. Admission Exam Per Admitting Provider General- Not in distress Head- atraumatic Eyes- PERRL, EOMI ENT- oropharynx clear Neck- supple, no JVD, no adenopathy. Lungs- clear to auscultation no wheezing or crackles. Heart- regular rate and rhythm; no murmur, no gallop. Abdomen- normal bowel sounds, soft, nontender, no distension. Extremities- no pretibial edema, no erythema seen Neuro- alert, oriented x 3; PERRL, EOMI; no facial palsy; no dysarthria; motor 5/5 bilaterally; co ordination of movements normal. No pronator drift, sensations intact. position sense intact. Principal Diagnosis Transient global amnesia Discharge Exam General- WD/WN F in NAD Head- atraumatic Eyes- PERRL, EOMI Neck- supple, no JVD, no adenopathy. Lungs- clear to auscultation no wheezing or crackles. Heart- regular rate and rhythm; no murmur Abdomen- normal bowel sounds, soft, nontender, no distension. Extremities- no pretibial edema, no erythema seen Neuro- alert, oriented x 3; PERRL, EOMI; no facial palsy; no dysarthria; motor 5/5 bilaterally, sensations intact. Discharge Data Allergies Allergy/AdvReac Type Severity Reaction Status Date / Time oxytocin Allergy Mild ILLNESS Verified 12/10/23 23:53 Consultations 12/10/23 23:34 ED Decision to Admit Stat 12/11/23 08:00 Consult Cardiology Routine Consult Neurology Routine Ordered Studies 12/10/23 21:44 CT angio head w con Stat CT angio neck with con Stat CT head/brain wo con Stat 12/11/23 03:05 MR brain wo/w con Urgent Hospital Course (1) Transient global amnesia: 68 yo F with past medical history significant for dyslipidemia, prediabetes, mild intermittent asthma, obstructive sleep apnea, mixed rhinitis, hypertension, sialadenitis, urge incontinence of urine, degenerative's disease, history of jaw pain, general anxiety disorder, primary insomnia, presents with transient global amnesia. Around 9 PM tonight patient was watching TV and for about 40 minutes she could not remember anything. Currently her memory is back. Resting comfortably. Last couple of days she has sharp pain on and off in the left temporal region of the head but that got resolved now. No dizziness. No blurred visions or double visions.. No runny nose. No sore throat. No cough. No nausea. No difficulty swallowing. No chest pain. No shortness of breath. No abdominal pain. Normal bowel and bladder movements. Ambulating okay. Hemodynamics are okay. Transient global amnesia CT head, CTA head and neck unremarkable Currently doing well [facility] neurology recommended MRI scan and EEG, lipid profile and continue home aspirin and telemetry monitoring. Will do a dose of IV thiamine Neurochecks as per protocol Speech evaluation PT OT evaluation Neuroconsult in a.m. for further recommendations MRI brain - No acute intracranial abnormality is identified noting a motion degraded examination EEG - This is a normal awake and drowsy routine EEG. Excessive beta activity is a normal variant and likely a side effect of medication (ie benzodiazepines). There is no evidence of epileptiform activity. Neurology consulted and discussed with - The patient is presenting with a classical case of transient global amnesia. Differential diagnosis includes acute ischemic event, versus seizure, hypoperfusion event, alcohol related, benzodiazepine related. MRI of the brain with no acute changes. CTA with no significant vascular abnormalities. EEG with no acute changes except for increased beta activity due to benzodiazepine use. Plan Continue aspirin and statin. Agree with an echocardiogram, cardiac workup with a Zio patch. Advised against the use of alcohol or benzodiazepines. Follow-up with cardiology and neurology as outpatient. Okay for discharge from neurology standpoint Echo obtained and cardiology consulted and discussed with Final results of echo to be reviewed as outpt however no pfo or any any major abnormalities noted on prelim read Plan to set up Zio patch - heart monitor for 14 days Prediabetes On metformin- resume on DC Hyperlipidemia Crestor, continue LDL 59 Mild intermittent asthma Currently stable Continue home inhalers Obstructive sleep apnea CPAP nightly Hypertension On lisinopril hydrochlorothiazide Cont. to monitor BP General anxiety disorder On fluoxetine Total Time Total Time Spent Total Time Spent (In Minutes): 40 Discharge Plan Discharge Items Patient Disposition: Home - Self-Care Reason For Visit: TRANSIENT GLOBAL AMNEISA Discharge Diagnosis: Transient global amnesia Activity: Per Instructions section Non-emergency contact: Primary Care Provider and [facility] [facility]ner Call non-emergency contact if: you have any medication questions and your symptoms worsen Follow-up/Referrals: Lambert Mendez MD [Primary Care Provider] - Diet: Carb Consistent or DM2 and Heart Healthy Addtl Attending Provider Instructions: Follow up with primary care provider, cardiology, and neurology. Continue taking aspirin and statin. Cardiology office will contact you about your appointment and about heart monitor - zio patch. Pending Studies at Discharge: Yes Studies:: results of echo Stand-Alone Forms: My [facility], Smoking Cessation Medications and DC Order Prescriptions: Continued metformin 500 mg tablet 500 mg PO BIDM aspirin 81 mg tablet,delayed release (DR/EC) 81 mg PO HS lisinopril-hydrochlorothiazide 10-12.5 mg tablet 1 tab PO HS albuterol sulfate 90 mcg/actuation Hfa Aerosol Inhaler 1 inh INHALATION DIRECTED PRN (Reason: Shortness Of Breath Or Wheezing) fluoxetine 20 mg capsule 20 mg PO HS fluticasone propionate 50 mcg/actuation spray,suspension 1 spray INTRANASAL HS rosuvastatin 5 mg tablet 5 mg PO HS Discharge Orders: Discharge Order (Routine); Ordered 12/11/23 Ordered By: David Saldaña/Other Patient Handouts: Prediabetes, 5 Steps for Eating Healthier Admission Data Admit Date/Time: 12/11/23 02:52 Attending Provider: David Mendes Admit Provider: Nain Ohara Primary Care Provider: Lambert Mendez Other Providers: Nain Ohara; Dillan Sr; Zeynep Bruce; Sukhjinder Bowman; Zeynep Mcduffie; Brendon Nuñez; Leo Whitney; Vince Barone; Lambert Hung; Roxann Alves; Rohit Marr; Romel Palmer; Rylan Dela Cruz; Fernando Gale; Monika Acharya; Lucrecia Gallegos; Lambert Madrid
[2023-12-11] MEDS ORDERED: FLUTICASONE PROPIONATE NA SPR 16 GM BTL SCH (21:00)
[2023-12-11] MEDS ORDERED: FLUoxetine HCL 20 MG CAP PO SCH (21:00)
[2023-12-11] MEDS ORDERED: ASPIRIN 81 MG ECTAB PO SCH (21:00)
[2023-12-11] MEDS ORDERED: ROSUVASTATIN CALCIUM 5 MG TAB PO SCH (21:00)
[2023-12-11] MEDS ORDERED: LISINOPRIL/HCTZ 10/12.5MG TAB PO SCH (21:00)
== END 2023-12-11 17:37 | disposition home or self-care (01) ==
LOC: ED 21:13 → INTOOBSV 12-11 02:52 → EDINP 12-11 02:52 → 2S 12-11 11:33